=== PATIENT | male | born 1930 | race Caucasian/White ===

== ENCOUNTER 2016-12-26 12:50 | Emergency (ER) | payer MEDICARE, BC ==
[2016-12-26 13:22] VITALS: BP 134/79
[2016-12-26] MEDS ORDERED: Lidocaine 1% with EPINEPHrine 1:100,000 50 ML MDV INJECT STA (13:56)
--- NOTE | 2016-12-26 14:02 | EDM.PDOC ---
ED HPI GENERAL MEDICAL PROBLEM - General Chief Complaint: Laceration Stated Complaint: FALL/HURT HEAD Time Seen by Provider: 12/26/16 13:45 Source of Information: Reports: Patient History Limitations: Reports: No Limitations - History of Present Illness INITIAL COMMENTS - FREE TEXT/NARRATIVE: Patient working in yard today, fell and struck head on a tree branch. He developed a laceration 8cm in length, linear. He denies LOC. Onset: Today Location: Reports: Other (Laceration to scalp over parietal bone. ) Quality: Reports: Dull Severity: Mild Associated Symptoms: Reports: No Other Symptoms. Denies: Confusion, Headaches - Related Data Allergies Allergy/AdvReac Type Severity Reaction Status Date / Time No Known Allergies Allergy Verified 12/26/16 13:36 Home Meds: Home Meds Acetaminophen [Pain Reliever] 1,000 mg PO BID 01/17/14 [History] HCTZ/Triamterene [Maxzide 50-75 MG] 0.5 tab PO QAM 01/17/14 [History] Lisinopril 40 mg PO QAM 01/17/14 [History] Metoprolol Succinate 50 mg PO BID 01/17/14 [History] Montelukast [Singulair] 10 mg PO QPM 01/17/14 [History] Omeprazole [Prilosec] 20 mg PO QAM 01/17/14 [History] Aspirin [Ecotrin] 81 mg PO DAILY 12/14/15 [History] Digoxin [Lanoxin] 125 mcg PO QAM 12/14/15 [History] Isosorbide Mononitrate [Imdur] 30 mg PO QPM 12/14/15 [History] Nitroglycerin 0.4 mg SL ASDIRECTED 12/14/15 [History] Tiotropium [Spiriva HandiHaler] 2 puff IH QPM 12/14/15 [History] Warfarin Sodium [Warfarin Sodium] 3 - 4 mg PO MOWEFR 12/14/15 [History] Omeprazole Magnesium 1 tab PO DAILY 12/26/16 [History] Past Medical History HEENT History: Reports: Cataract, Hard of Hearing, Impaired Vision Cardiovascular History: Reports: Afib, Arrhythmia, CAD, High Cholesterol, Hypertension, [place], Stents Respiratory History: Reports: Asthma, COPD Gastrointestinal History: Reports: GERD Genitourinary History: Reports: Prostate Disorder Musculoskeletal History: Reports: Arthritis, Fracture Hematologic History: Reports: Blood Transfusion(s) Oncologic (Cancer) History: Reports: Prostate - Past Surgical History HEENT Surgical History: Reports: Cataract Surgery Cardiovascular Surgical History: Reports: Coronary Artery Stent GI Surgical History: Reports: Colonoscopy, EGD Male Surgical History: Reports: Other (See Below) Other Male Surgeries/Procedures: prostate removed Musculoskeletal Surgical History: Reports: Hip Replacement Social & Family History - Tobacco Use Smoking Status *Q: Never Smoker Years of Tobacco use: 30 Used Tobacco, but Quit: Yes Month Tobacco Last Used: jul Second Hand Smoke Exposure: No - Alcohol Use Days Per Week of Alcohol Use: 4 Number of Drinks Per Day: 1 Total Drinks Per Week: 4 - Recreational Drug Use Recreational Drug Use: No ED ROS GENERAL - Review of Systems Review Of Systems: See Below Constitutional: Reports: No Symptoms HEENT: Reports: Other (Laceration to scalp, no complaints of pain, change in dentition, no change in vision. ) Respiratory: Denies: Shortness of Breath, Wheezing, Cough Cardiovascular: Denies: Chest Pain, Dyspnea on Exertion, Lightheadedness, Palpitations, Syncope Endocrine: Reports: No Symptoms GI/Abdominal: Reports: No Symptoms Musculoskeletal: Denies: Neck Pain, Shoulder Pain, Back Pain, Muscle Pain, Muscle Stiffness Skin: Reports: Wound, Other (Laceration to scalp, bleeding controlled at this time. ) Neurological: Reports: Other (Laceration to scalp, bleeding controlled at this time. ). Denies: Confusion, Dizziness, Headache, Trouble Speaking, Difficulty Walking, Weakness Psychiatric: Reports: No Symptoms Hematologic/Lymphatic: Reports: Other (Patient takes warfarin) Immunologic: Reports: No Symptoms ED EXAM, SKIN/RASH Exam: See Below Exam Limited By: No Limitations General Appearance: Alert, WD/WN, No Apparent Distress Eye Exam: Bilateral Eye: EOMI (Intact), Normal Inspection, PERRL Ears: Normal External Exam, Normal Canal, Hearing Grossly Normal, Normal TMs Nose: Normal Inspection, Normal Mucosa, No Blood Throat/Mouth: Normal Inspection, Normal Lips, Normal Teeth, Normal Gums, Normal Oropharynx, Normal Voice, No Airway Compromise Head: Atraumatic, Normocephalic Neck: Normal Inspection, Supple, Non-Tender, Full Range of Motion Respiratory/Chest: No Respiratory Distress, Lungs Clear, Normal Breath Sounds, No Accessory Muscle Use, Chest Non-Tender Cardiovascular: Normal Peripheral Pulses, Regular Rate, Rhythm, No Edema, No Gallop, No Murmur, No Rub Peripheral Pulses: 2+: Radial (L), Radial (R), Dorsalis Pedis (L), Dorsalis Pedis (R) GI/Abdominal: Normal Bowel Sounds, Soft, Non-Tender, No Organomegaly, No Distention Back Exam: Normal Inspection, Full Range of Motion. No: CVA Tenderness (R), CVA Tenderness (L) Extremities: Normal Inspection, Normal Range of Motion, Non-Tender, No Pedal Edema, Normal Capillary Refill Neurological: Alert, Oriented, CN II-XII Intact, Normal Cognition, Normal Gait, No Motor/Sensory Deficits Psychiatric: Normal Affect, Normal Mood Skin: Warm, Dry, Normal Color, No Rash, Other (Laceration to scalp over parietal bone, 7cm in length, linear. ) Lymphatic: No Adenopathy ED SKIN PROCEDURES - Laceration/Wound Repair Middle Occipital Head Lac/Wound length In cm: 7 Appearance: Linear Distal NVT: Neuro & Vascular Intact Anesthetic Type: Local Local Anesthesia - Lidocaine (Xylocaine): 1% With EPI Local Anesthetic Volume: 4cc Skin Prep: Chlorhexidine (Hibiciens), Saline Saline Irrigation (cc's): 30 Exploration/Debridement/Repair: No Foreign Material Found Closed with: Parris Course - Vital Signs Last Recorded V/S: Last Vital Signs Temp 37.2 C 12/26/16 13:35 Pulse 62 12/26/16 13:35 Resp 16 12/26/16 13:35 BP 134/79 12/26/16 13:35 Pulse Ox 96 12/26/16 13:35 - Orders/Labs/Meds Orders: Active Orders 24 hr Category Date Time Status Vaccines to be Administered [RC] PER UNIT ROUTINE Care 12/26/16 14:47 Active Meds: Medications Discontinued Medications Generic Name Dose Route Start Last Admin Trade Name Ryan PRN Reason Stop Dose Admin Bacitracin 1 dose 12/26/16 14:36 12/26/16 14:39 Bacitracin Oint 1 Gm TOP 12/26/16 14:37 1 dose ONETIME ONE Administration Diphtheria/Tetanus/Acell Pertussis 0.5 ml 12/26/16 14:46 12/26/16 14:52 Adacel IM 12/26/16 14:47 0.5 ml .ONCE ONE Administration Lidocaine/Epinephrine 20 ml 12/26/16 13:56 12/26/16 14:37 Xylocaine 1% With Epinephrine 1:100,000 INJECT 12/26/16 13:57 20 ml NOW STA Administration - Radiology Interpretation Free Text/Narrative:: Will complete head CT due to warfarin use and head injury. - Re-Assessments/Exams Free Text/Narrative Re-Assessment/Exam: 12/26/16 14:38 Laceration to scalp closed with parris, patient tolerated well. Departure - Departure Time of Disposition: 14:39 Disposition: DC/Tfer to SNF 03 Condition: Good Clinical Impression: Laceration of scalp, Head injury without concussion or intracranial hemorrhage - Discharge Information Instructions: Head Injury, Adult, Laceration Care, Adult, [id number], Stitches, [place], or Adhesive Wound Closure, [id number] Referrals: Harry Hussein Sr, MD [Primary Care Provider] - Forms: ED Department Discharge Additional Instructions: Watch for signs of worsening head injury as we discussed. Keep pressure dressing on for 2 hours to help prevent a hematoma developing. You may use acetaminophen for discomfort if needed. Return to the ER or clinic for removal of the parris in 10 days. You may shower in 24 hours. Use bacitracin antibiotic ointment to the laceration twice per day. Keep the area clean and dry. Return at any time for worsening or issues. - Problem List Review Problem List Initiated/Reviewed/Updated: Yes - My Orders Last 24 Hours: My Active Orders 12/26/16 14:47 Vaccines to be Administered [RC] PER UNIT ROUTINE - Assessment/Plan Last 24 Hours: My Active Orders 12/26/16 14:47 Vaccines to be Administered [RC] PER UNIT ROUTINE Assessment:: Acute renal failure secondary to dehydration, vomiting and diarrhea for 3 to 4 days. Plan: Patient transferred to [facility] via ALS ambulance.
--- NOTE | 2016-12-26 14:27 | CT ---
Head wo Cont INDICATION: Head injury. Total DLP 845 COMPARISON: None FINDINGS: No acute intracranial hemorrhage, mass, or edema. Benign right frontal bone hemangioma. Mi ld generalized cerebral and cerebellar volume loss. Mild chronic white matter changes. Fluid and muc osal thickening in the visualized right maxillary and ethmoid sinuses. Exam otherwise unremarkable. IMPRESSION: No acute intracranial abnormality. Paranasal sinus disease.
[2016-12-26] MEDS ORDERED: Bacitracin Oint 1 GM U/D Packet TOP ONE (14:36)
[2016-12-26] MEDS ORDERED: Diphtheria,Pertussis(Acell),Tetanus Vaccine 0.5 ML SDV IM ONE (14:46)
== END 2016-12-26 15:17 | disposition home or self-care (01) ==
LOC: JP.ED 12:50
DX: S01.01XA Laceration without foreign body of scalp, initial encounter (principal); S09.90XA Unspecified injury of head, initial encounter; K21.9 Gastro-esophageal reflux disease without esophagitis; J45.909 Unspecified asthma, uncomplicated; J44.9 Chronic obstructive pulmonary disease, unspecified; I25.10 Atherosclerotic heart disease of native coronary artery without angina pectoris; E78.00 Pure hypercholesterolemia, unspecified; I10 Essential (primary) hypertension; I25.2 Old myocardial infarction; Z95.4 Presence of other heart-valve replacement; Z90.49 Acquired absence of other specified parts of digestive tract; Z96.649 Presence of unspecified artificial hip joint; Z79.899 Other long term (current) drug therapy; Z79.01 Long term (current) use of anticoagulants; Z79.82 Long term (current) use of aspirin; W01.198A Fall on same level from slipping, tripping and stumbling with subsequent striking against other object, initial encounter; Y92.096 Garden or yard of other non-institutional residence as the place of occurrence of the external cause; Y99.0 Civilian activity done for income or pay
CPT/HCPCS: 12002; 70450; 70450-26; 90471; 90715; 99284-25

== ENCOUNTER 2019-07-06 16:32 | Inpatient (IN) | payer MEDICARE, BC ==
--- NOTE | 2019-07-06 17:38 | EDM.PDOC ---
ED HPI GENERAL MEDICAL PROBLEM - General Chief Complaint: Gastrointestinal Problem Stated Complaint: ACID REFLUX SYMPTOMS Time Seen by Provider: 07/06/19 17:36 Source of Information: Reports: Patient History Limitations: Reports: No Limitations - History of Present Illness INITIAL COMMENTS - FREE TEXT/NARRATIVE: pt is having episodes after eating where he does not feel like the foot is going down. He becomes very uncomfortable and he gets some relief it he goes and vomits. He has been on prilosec and was taken off of that the end of last summer. Onset: Gradual Duration: Day(s): Location: Reports: Abdomen Associated Symptoms: Reports: Nausea/Vomiting, Other (pain in the abdoman. ) - Related Data Allergies Allergy/AdvReac Type Severity Reaction Status Date / Time No Known Allergies Allergy Verified 07/06/19 16:56 Home Meds: Home Meds Acetaminophen [Pain Reliever] 1,000 mg PO BID 01/17/14 [History] HCTZ/Triamterene [Maxzide 50-75 MG] 0.5 tab PO QAM 01/17/14 [History] Lisinopril 40 mg PO QAM 01/17/14 [History] Metoprolol Succinate 50 mg PO BID 01/17/14 [History] Montelukast [Singulair] 10 mg PO QPM 01/17/14 [History] Aspirin [Ecotrin EC] 81 mg PO DAILY 12/14/15 [History] Nitroglycerin 0.4 mg SL ASDIRECTED 12/14/15 [History] Tiotropium [Spiriva HandiHaler] 2 puff IH QPM 12/14/15 [History] Warfarin Sodium 5 mg PO DAILY 12/14/15 [History] Lovastatin 10 mg PO BEDTIME 07/06/19 [History] Past Medical History HEENT History: Reports: Cataract, Hard of Hearing, Impaired Vision Cardiovascular History: Reports: Afib, Arrhythmia, CAD, High Cholesterol, Hypertension, [place], Stents Respiratory History: Reports: Asthma, COPD Gastrointestinal History: Reports: GERD Genitourinary History: Reports: Prostate Disorder Musculoskeletal History: Reports: Arthritis, Fracture Hematologic History: Reports: Blood Transfusion(s) Oncologic (Cancer) History: Reports: Prostate - Infectious Disease History Infectious Disease History: Reports: Chicken Pox, Measles, Mumps - Past Surgical History HEENT Surgical History: Reports: Cataract Surgery Cardiovascular Surgical History: Reports: Coronary Artery Stent GI Surgical History: Reports: Colonoscopy, EGD Male Surgical History: Reports: Other (See Below) Other Male Surgeries/Procedures: prostate removed Musculoskeletal Surgical History: Reports: Hip Replacement Dermatological Surgical History: Reports: Skin Biopsy Social & Family History - Caffeine Use Caffeine Use: Reports: Coffee - Recreational Drug Use Recreational Drug Use: No ED ROS GENERAL - Review of Systems Review Of Systems: See Below Constitutional: Reports: No Symptoms HEENT: Reports: No Symptoms Respiratory: Reports: No Symptoms Cardiovascular: Reports: No Symptoms Endocrine: Reports: No Symptoms GI/Abdominal: Reports: Abdominal Pain, Vomiting, Other (pain after eating or drinking fluids. he gets nauseated and he vomits. He has severe paion in the espoagus after he swallows something. He is relieving this pain by vomiting. ) : Reports: No Symptoms Musculoskeletal: Reports: No Symptoms Skin: Reports: No Symptoms Neurological: Reports: No Symptoms ED EXAM, GI/ABD - Physical Exam Exam: See Below Text/Narrative:: pt arrived with severe pain in the lower esophagus area everytime he eats or drinks. This started mid morning and has been persistent. Exam Limited By: No Limitations General Appearance: Alert, Anxious, Moderate Distress Ears: Normal TMs Nose: Normal Inspection Throat/Mouth: Normal Inspection Head: Atraumatic Neck: Normal Inspection Respiratory/Chest: No Respiratory Distress Cardiovascular: Regular Rate, Rhythm GI/Abdominal Exam: Other ( no guarding or tenderness) (Male) Exam: Deferred Rectal (Males) Exam: Deferred Back Exam: Normal Inspection Extremities: Normal Inspection Neurological: Alert, Oriented, Normal Cognition Psychiatric: Anxious Course - Vital Signs Last Recorded V/S: Last Vital Signs Temp 36.4 C 07/06/19 16:55 Pulse 69 07/06/19 17:38 Resp 16 07/06/19 16:55 BP 139/65 07/06/19 17:38 Pulse Ox 99 07/06/19 17:38 - Orders/Labs/Meds Orders: Active Orders 24 hr Category Date Time Status Sodium Chloride 0.9% [Normal Saline] 1,000 ml Med 07/06/19 17:45 Active IV ASDIRECTED Medication Orders Sodium Chloride (Normal Saline) 1,000 mls @ 999 mls/hr IV ASDIRECTED ANNE Last Admin: 07/06/19 18:22 Dose: 999 mls/hr Labs: Laboratory Tests 07/06/19 07/06/19 07/06/19 Range/Units 17:50 17:50 17:50 WBC 7.8 (4.5-11.0) K/uL RBC 4.76 (4.30-5.90) M/uL Hgb 14.8 D (12.0-15.0) g/dL Hct 44.4 (40.0-54.0) % MCV 93 (80-98) fL MCH 31 (27-31) pg MCHC 33 (32-36) % Plt Count 224 (150-400) K/uL Neut % (Auto) 68 H (36-66) % Lymph % (Auto) 19 L (24-44) % [place] % (Auto) 11 H (2-6) % Eos % (Auto) 1 L (2-4) % Baso % (Auto) 0 (0-1) % PT 28.1 H (9.5-12.0) sec INR 2.76 H (0.80-1.20) Sodium 140 (140-148) mmol/L Potassium 3.5 L (3.6-5.2) mmol/L Chloride 102 (100-108) mmol/L Carbon Dioxide 28 (21-32) mmol/L Anion Gap 13.5 (5.0-14.0) mmol/L BUN 32 H (7-18) mg/dL Creatinine 1.3 (0.8-1.3) mg/dL Est Cr Clr Drug Dosing 45.02 mL/min Estimated GFR (MDRD) 52 L (>60) Glucose 95 (74-106) mg/dL Calcium 10.0 (8.5-10.1) mg/dL Total Bilirubin 0.7 (0.2-1.0) mg/dL AST 23 (15-37) U/L ALT 42 (12-78) U/L Alkaline Phosphatase 58 (46-116) U/L C-Reactive Protein (0.0-0.3) mg/dL Total Protein 7.5 (6.4-8.2) g/dL Albumin 4.1 (3.4-5.0) g/dL Globulin 3.4 (2.3-3.5) g/dL Albumin/Globulin Ratio 1.2 (1.2-2.2) Lipase (73-393) U/L 07/06/19 07/06/19 Range/Units 17:50 17:55 WBC (4.5-11.0) K/uL RBC (4.30-5.90) M/uL Hgb (12.0-15.0) g/dL Hct (40.0-54.0) % MCV (80-98) fL MCH (27-31) pg MCHC (32-36) % Plt Count (150-400) K/uL Neut % (Auto) (36-66) % Lymph % (Auto) (24-44) % [place] % (Auto) (2-6) % Eos % (Auto) (2-4) % Baso % (Auto) (0-1) % PT (9.5-12.0) sec INR (0.80-1.20) Sodium (140-148) mmol/L Potassium (3.6-5.2) mmol/L Chloride (100-108) mmol/L Carbon Dioxide (21-32) mmol/L Anion Gap (5.0-14.0) mmol/L BUN (7-18) mg/dL Creatinine (0.8-1.3) mg/dL Est Cr Clr Drug Dosing mL/min Estimated GFR (MDRD) (>60) Glucose (74-106) mg/dL Calcium (8.5-10.1) mg/dL Total Bilirubin (0.2-1.0) mg/dL AST (15-37) U/L ALT (12-78) U/L Alkaline Phosphatase (46-116) U/L C-Reactive Protein 0.05 (0.0-0.3) mg/dL Total Protein (6.4-8.2) g/dL Albumin (3.4-5.0) g/dL Globulin (2.3-3.5) g/dL Albumin/Globulin Ratio (1.2-2.2) Lipase 94 (73-393) U/L Meds: Medications Generic Name Dose Route Start Last Admin Trade Name Freq PRN Reason Stop Dose Admin Sodium Chloride 1,000 mls @ 999 mls/hr 07/06/19 17:45 07/06/19 18:22 Normal Saline IV 999 mls/hr ASDIRECTED ANNE Administration Discontinued Medications Generic Name Dose Route Start Last Admin Trade Name Freq PRN Reason Stop Dose Admin Pantoprazole Sodium 40 mg 07/06/19 17:39 07/06/19 18:26 Protonix Iv IVPUSH 07/06/19 17:40 40 mg ONETIME ONE Administration - Re-Assessments/Exams Free Text/Narrative Re-Assessment/Exam: 07/06/19 18:50 pt had lab work and he looks ok . He id try to drink some water and he ended up vomiting it back up. He is comfortable after he vomits. Dr Hussein was consulted and he will admit and scope in the am. Departure - Departure Time of Disposition: 18:51 Disposition: Admitted As Inpatient 66 Condition: Fair Clinical Impression: Esophageal spasm, Abdominal discomfort - Discharge Information Referrals: Harry Hussein Sr, MD [Primary Care Provider] - Forms: ED Department Discharge Care Plan Goals: admit to Dr Vitor marie Sepsis Event Note - Evaluation Sepsis Screening Result: No Definite Risk - Focused Exam Vital Signs: Vital Signs Temp Pulse Resp BP Pulse Ox 07/06/19 17:38 69 139/65 99 07/06/19 16:55 36.4 C 70 16 160/71 H 98 07/06/19 16:42 36.4 C 70 16 160/71 H 98 Date Exam was Performed: 07/06/19 Time Exam was Performed: 18:44 - My Orders Last 24 Hours: My Active Orders 07/06/19 17:45 Sodium Chloride 0.9% [Normal Saline] 1,000 ml IV ASDIRECTED - Assessment/Plan Last 24 Hours: My Active Orders 07/06/19 17:45 Sodium Chloride 0.9% [Normal Saline] 1,000 ml IV ASDIRECTED
[2019-07-06] MEDS ORDERED: Pantoprazole 40 MG Vial IVPUSH ONE (17:39)
[2019-07-06] MEDS: Sodium Chloride 0.9% 1,000 ML IV SCH ×2 (18:22→22:50)
[2019-07-06] MEDS ORDERED: Phytonadione 5 MG in Sodium Chloride 0.9% 50 ML IV ONE (21:58)
[2019-07-06] MEDS ORDERED: Nitroglycerin 0.4 MG Tab.SL SL SCH (22:00)
--- NOTE | 2019-07-06 22:08 | PCM.HP.2 ---
H&P History of Present Illness - General Date of Service: 07/06/19 Admit Problem/Dx: Admission Diagnosis/Problem Admission Diagnosis/Problem Esophageal dysmotility Source of Information: Patient, Family - History of Present Illness Initial Comments - Free Text/Narative: Jordy had the first episode of food sticking in the esophagus on Apr 18, 2019 and a second one last Thursday. Today has been unable to swallow after eating a piece of turkey at noon today. He is unable to swallow any food or liquid since. Onset of Symptoms: Reports: Today Duration of Symptoms: Reports: Hour(s): Severity: Moderate Worsens with: Reports: Eating - Related Data Allergies/Adverse Reactions: Allergies Allergy/AdvReac Type Severity Reaction Status Date / Time No Known Allergies Allergy Verified 07/06/19 16:56 Home Medications: Home Meds Acetaminophen [Pain Reliever] 1,000 mg PO BID 01/17/14 [History] HCTZ/Triamterene [Maxzide 50-75 MG] 0.5 tab PO QAM 01/17/14 [History] Lisinopril 40 mg PO QAM 01/17/14 [History] Metoprolol Succinate 50 mg PO BID 01/17/14 [History] Montelukast [Singulair] 10 mg PO QPM 01/17/14 [History] Aspirin [Ecotrin EC] 81 mg PO DAILY 12/14/15 [History] Nitroglycerin 0.4 mg SL ASDIRECTED 12/14/15 [History] Tiotropium [Spiriva HandiHaler] 2 puff IH QPM 12/14/15 [History] Warfarin Sodium 5 mg PO DAILY 12/14/15 [History] Lovastatin 10 mg PO BEDTIME 07/06/19 [History] Past Medical History HEENT History: Reports: Cataract, Hard of Hearing, Impaired Vision Cardiovascular History: Reports: Afib, Arrhythmia, CAD, High Cholesterol, Hypertension, PR, Stents Respiratory History: Reports: Asthma, COPD Gastrointestinal History: Reports: GERD Genitourinary History: Reports: Prostate Disorder Musculoskeletal History: Reports: Arthritis, Fracture Hematologic History: Reports: Blood Transfusion(s) Oncologic (Cancer) History: Reports: Prostate - Infectious Disease History Infectious Disease History: Reports: Chicken Pox, Measles, Mumps - Past Surgical History HEENT Surgical History: Reports: Cataract Surgery Cardiovascular Surgical History: Reports: Coronary Artery Stent GI Surgical History: Reports: Colonoscopy, EGD Male Surgical History: Reports: Other (See Below) Other Male Surgeries/Procedures: prostate removed Musculoskeletal Surgical History: Reports: Hip Replacement Dermatological Surgical History: Reports: Skin Biopsy Social & Family History - Caffeine Use Caffeine Use: Reports: Coffee - Recreational Drug Use Recreational Drug Use: No H&P Review of Systems - Review of Systems: Review Of Systems: See Below General: Reports: No Symptoms HEENT: Reports: No Symptoms Pulmonary: Reports: No Symptoms Cardiovascular: Reports: No Symptoms Gastrointestinal: Reports: Difficulty Swallowing Genitourinary: Reports: No Symptoms Musculoskeletal: Reports: No Symptoms Skin: Reports: No Symptoms Psychiatric: Reports: No Symptoms Neurological: Reports: No Symptoms Hematologic/Lymphatic: Reports: No Symptoms Immunologic: Reports: No Symptoms Exam - Exam Exam: See Below - Vital Signs Vital Signs: Last Vital Signs Temp 97.6 F 07/06/19 16:55 Pulse 62 07/06/19 19:37 Resp 17 07/06/19 19:37 BP 144/87 H 07/06/19 19:37 Pulse Ox 97 07/06/19 19:37 Weight: 175 lb 4.28 oz - Exam General: Alert, Oriented, 4 HEENT: PERRLA, Hearing Intact, Mucosa Moist & [place], Nares Patent, Normal Nasal Septum, Posterior Pharynx Clear, Conjunctiva Clear, EOMI, EACs Clear, TMs Clear Neck: Supple, Trachea Midline, 2 Lungs: Clear to Auscultation, Normal Respiratory Effort Cardiovascular: Regular Rate, Regular Rhythm GI/Abdominal Exam: Normal Bowel Sounds, Soft, Non-Tender, No Organomegaly, No Distention, No Abnormal Bruit, No Mass, Pelvis Stable Back Exam: Normal Inspection, Full Range of Motion, NT Extremities: Normal Inspection, Normal Range of Motion, Non-Tender, No Pedal Edema, Normal Capillary Refill Peripheral Pulses: 1+: Radial (L), Radial (R) Skin: Warm, Dry, Intact Neurological: Cranial Nerves Intact, Reflexes Equal Bilateral Neuro Extensive - Mental Status: Alert, Oriented x3, Normal Mood/Affect, Normal Cognition Neuro Extensive - Motor, Sensory, Reflexes: CN II-XII Intact, Normal Gait, Normal Reflexes DTR: 1+: Bicep (L), Bicep (R) Psychiatric: Alert, Normal Affect, Normal Mood - Patient Data Lab Results Last 24 hrs: Laboratory Results - last 24 hr 07/06/19 07/06/19 07/06/19 Range/Units 17:50 17:50 17:50 WBC 7.8 (4.5-11.0) K/uL RBC 4.76 (4.30-5.90) M/uL Hgb 14.8 D (12.0-15.0) g/dL Hct 44.4 (40.0-54.0) % MCV 93 (80-98) fL MCH 31 (27-31) pg MCHC 33 (32-36) % Plt Count 224 (150-400) K/uL Neut % (Auto) 68 H (36-66) % Lymph % (Auto) 19 L (24-44) % [place] % (Auto) 11 H (2-6) % Eos % (Auto) 1 L (2-4) % Baso % (Auto) 0 (0-1) % PT 28.1 H (9.5-12.0) sec INR 2.76 H (0.80-1.20) Sodium 140 (140-148) mmol/L Potassium 3.5 L (3.6-5.2) mmol/L Chloride 102 (100-108) mmol/L Carbon Dioxide 28 (21-32) mmol/L Anion Gap 13.5 (5.0-14.0) mmol/L BUN 32 H (7-18) mg/dL Creatinine 1.3 (0.8-1.3) mg/dL Est Cr Clr Drug Dosing 45.02 mL/min Estimated GFR (MDRD) 52 L (>60) Glucose 95 (74-106) mg/dL Calcium 10.0 (8.5-10.1) mg/dL Total Bilirubin 0.7 (0.2-1.0) mg/dL AST 23 (15-37) U/L ALT 42 (12-78) U/L Alkaline Phosphatase 58 (46-116) U/L C-Reactive Protein (0.0-0.3) mg/dL Total Protein 7.5 (6.4-8.2) g/dL Albumin 4.1 (3.4-5.0) g/dL Globulin 3.4 (2.3-3.5) g/dL Albumin/Globulin Ratio 1.2 (1.2-2.2) Lipase (73-393) U/L 07/06/19 07/06/19 Range/Units 17:50 17:55 WBC (4.5-11.0) K/uL RBC (4.30-5.90) M/uL Hgb (12.0-15.0) g/dL Hct (40.0-54.0) % MCV (80-98) fL MCH (27-31) pg MCHC (32-36) % Plt Count (150-400) K/uL Neut % (Auto) (36-66) % Lymph % (Auto) (24-44) % [place] % (Auto) (2-6) % Eos % (Auto) (2-4) % Baso % (Auto) (0-1) % PT (9.5-12.0) sec INR (0.80-1.20) Sodium (140-148) mmol/L Potassium (3.6-5.2) mmol/L Chloride (100-108) mmol/L Carbon Dioxide (21-32) mmol/L Anion Gap (5.0-14.0) mmol/L BUN (7-18) mg/dL Creatinine (0.8-1.3) mg/dL Est Cr Clr Drug Dosing mL/min Estimated GFR (MDRD) (>60) Glucose (74-106) mg/dL Calcium (8.5-10.1) mg/dL Total Bilirubin (0.2-1.0) mg/dL AST (15-37) U/L ALT (12-78) U/L Alkaline Phosphatase (46-116) U/L C-Reactive Protein 0.05 (0.0-0.3) mg/dL Total Protein (6.4-8.2) g/dL Albumin (3.4-5.0) g/dL Globulin (2.3-3.5) g/dL Albumin/Globulin Ratio (1.2-2.2) Lipase 94 (73-393) U/L Result Diagrams: 07/06/19 17:50 07/06/19 17:50 Sepsis Event Note - Evaluation Sepsis Screening Result: No Definite Risk - Focused Exam Vital Signs: Vital Signs Temp Pulse Resp BP Pulse Ox 07/06/19 19:37 62 17 144/87 H 97 07/06/19 17:38 69 139/65 99 07/06/19 16:55 97.6 F 70 16 160/71 H 98 07/06/19 16:42 97.6 F 70 16 160/71 H 98 Date Exam was Performed: 07/06/19 Time Exam was Performed: 22:21 Problem List Initiated/Reviewed/Updated: Yes Orders Last 24hrs: Active Orders 24 hr Category Date Time Status Patient Status [ADT] Routine ADT 07/06/19 21:50 Ordered Ambulate [RC] QID Care 07/06/19 21:50 Ordered Bedrest Bathroom Privileges [RC] ASDIRECTED Care 07/06/19 21:50 Ordered Height and Weight [RC] DAILY Care 07/06/19 21:50 Ordered Intake and Output [RC] QSHIFT Care 07/06/19 21:55 Ordered May Shower [RC] ASDIRECTED Care 07/06/19 21:50 Ordered Oxygen Therapy [RC] PRN Care 07/06/19 21:50 Ordered VTE/DVT Education [RC] Per Unit Routine Care 07/06/19 21:50 Ordered Vital Signs [RC] Q4H Care 07/06/19 21:50 Ordered Nitroglycerin [Nitrostat] Med 07/06/19 22:00 Ordered 0.4 mg SL ASDIRECTED Phytonadione [AquaMephyton] 5 mg Med 07/06/19 21:58 Ordered Sodium Chloride 0.9% [Normal Saline] 50 ml IV NOW Sodium Chloride 0.9% [Normal Saline] 1,000 ml Med 07/06/19 17:45 Active IV ASDIRECTED Tiotropium [Spiriva HandiHaler] Med 07/07/19 17:00 Ordered 2 puff IH QPM Resuscitation Status Routine Resus Stat 07/06/19 21:50 Ordered Medication Orders Sodium Chloride (Normal Saline) 1,000 mls @ 100 mls/hr IV ASDIRECTED ANNE Last Admin: 07/06/19 18:22 Dose: 999 mls/hr Assessment/Plan Comment:: Assessment/Plan: #1. Esophageal stenosis: Will do an EGD in the morning and dilate the esophagus. #2. HTN: Stable #3. Atrial Fe. He is on Coumadin. Will give Vit K IV since he can't swallow and check a INR in the morning. INR is 2.7 this evening. #4. Hypokalemia. Will add K to the IV. #5. HLD #6. Hx. Ca of the Prostate. - Mortality Measure Prognosis:: Good
[2019-07-06] MEDS ORDERED: Potassium Chloride 20 MEQ in Premix Bag 2 BAG IV ONE (22:43)
[2019-07-06] MEDS ORDERED: Metoprolol Tartrate 5 MG/5 ML SDV IVPUSH PRN (23:31)
[2019-07-07] MEDS: Potassium Chloride 20 MEQ in Premix Bag 1 BAG IV SCH ×2 (00:33→02:35)
[2019-07-07] MEDS ORDERED: Glycopyrrolate 15.6 MCG Cap.W.Dev Kit of 6 IH SCH ×2 (07:00→07:30)
[2019-07-07] MEDS ORDERED: fentaNYL 100 MCG/2 ML SDV ONE (07:30)
[2019-07-07] MEDS ORDERED: Propofol 200 MG/20 ML SDV ONE (07:30)
[2019-07-07] MEDS ORDERED: Lactated Ringers 1,000 ML ONE (08:25)
[2019-07-07] MEDS ORDERED: Pneumococcal Polyvalent-23 Vaccine 0.5 ML SDV IM ONE (09:00)
--- NOTE | 2019-07-07 09:24 | PCM.PN ---
- General Info Date of Service: 07/07/19 Functional Status: Reports: Pain Controlled - Review of Systems General: Reports: No Symptoms HEENT: Reports: No Symptoms Pulmonary: Reports: No Symptoms Cardiovascular: Reports: No Symptoms Gastrointestinal: Reports: No Symptoms Genitourinary: Reports: No Symptoms Musculoskeletal: Reports: No Symptoms Skin: Reports: No Symptoms Neurological: Reports: No Symptoms Psychiatric: Reports: No Symptoms - Patient Data Vitals - Most Recent: Last Vital Signs Temp 97.7 F 07/07/19 09:05 Pulse 68 07/07/19 09:05 Resp 14 07/07/19 09:05 BP 143/68 H 07/07/19 09:05 Pulse Ox 98 07/07/19 09:05 Weight - Most Recent: 175 lb 3.2 oz I&O - Last 24 Hours: Intake & Output 07/06/19 07/07/19 07/07/19 22:59 06:59 14:59 Intake Total 795 75 Output Total 800 Balance -5 75 Lab Results Last 24 Hours: Laboratory Results - last 24 hr 07/06/19 07/06/19 07/06/19 Range/Units 17:50 17:50 17:50 WBC 7.8 (4.5-11.0) K/uL RBC 4.76 (4.30-5.90) M/uL Hgb 14.8 D (12.0-15.0) g/dL Hct 44.4 (40.0-54.0) % MCV 93 (80-98) fL MCH 31 (27-31) pg MCHC 33 (32-36) % Plt Count 224 (150-400) K/uL Neut % (Auto) 68 H (36-66) % Lymph % (Auto) 19 L (24-44) % [place] % (Auto) 11 H (2-6) % Eos % (Auto) 1 L (2-4) % Baso % (Auto) 0 (0-1) % PT 28.1 H (9.5-12.0) sec INR 2.76 H (0.80-1.20) Sodium 140 (140-148) mmol/L Potassium 3.5 L (3.6-5.2) mmol/L Chloride 102 (100-108) mmol/L Carbon Dioxide 28 (21-32) mmol/L Anion Gap 13.5 (5.0-14.0) mmol/L BUN 32 H (7-18) mg/dL Creatinine 1.3 (0.8-1.3) mg/dL Est Cr Clr Drug Dosing 45.02 mL/min Estimated GFR (MDRD) 52 L (>60) Glucose 95 (74-106) mg/dL Calcium 10.0 (8.5-10.1) mg/dL Total Bilirubin 0.7 (0.2-1.0) mg/dL AST 23 (15-37) U/L ALT 42 (12-78) U/L Alkaline Phosphatase 58 (46-116) U/L C-Reactive Protein (0.0-0.3) mg/dL Total Protein 7.5 (6.4-8.2) g/dL Albumin 4.1 (3.4-5.0) g/dL Globulin 3.4 (2.3-3.5) g/dL Albumin/Globulin Ratio 1.2 (1.2-2.2) Lipase (73-393) U/L 07/06/19 07/06/19 Range/Units 17:50 17:55 WBC (4.5-11.0) K/uL RBC (4.30-5.90) M/uL Hgb (12.0-15.0) g/dL Hct (40.0-54.0) % MCV (80-98) fL MCH (27-31) pg MCHC (32-36) % Plt Count (150-400) K/uL Neut % (Auto) (36-66) % Lymph % (Auto) (24-44) % [place] % (Auto) (2-6) % Eos % (Auto) (2-4) % Baso % (Auto) (0-1) % PT (9.5-12.0) sec INR (0.80-1.20) Sodium (140-148) mmol/L Potassium (3.6-5.2) mmol/L Chloride (100-108) mmol/L Carbon Dioxide (21-32) mmol/L Anion Gap (5.0-14.0) mmol/L BUN (7-18) mg/dL Creatinine (0.8-1.3) mg/dL Est Cr Clr Drug Dosing mL/min Estimated GFR (MDRD) (>60) Glucose (74-106) mg/dL Calcium (8.5-10.1) mg/dL Total Bilirubin (0.2-1.0) mg/dL AST (15-37) U/L ALT (12-78) U/L Alkaline Phosphatase (46-116) U/L C-Reactive Protein 0.05 (0.0-0.3) mg/dL Total Protein (6.4-8.2) g/dL Albumin (3.4-5.0) g/dL Globulin (2.3-3.5) g/dL Albumin/Globulin Ratio (1.2-2.2) Lipase 94 (73-393) U/L Med Orders - Current: Current Medications Glycopyrrolate (Seebri Neohaler) 15.6 mcg IH BIDRT [facility] Sodium Chloride (Normal Saline) 1,000 mls @ 100 mls/hr IV ASDIRECTED [facility] Last Admin: 07/06/19 22:50 Dose: 100 mls/hr Metoprolol Tartrate (Lopressor) 5 mg IVPUSH Q4H PRN PRN Reason: Hypertension Last Admin: 07/07/19 03:06 Dose: 5 mg Discontinued Medications Fentanyl (Sublimaze) Confirm Administered Dose 100 mcg .ROUTE .STK-MED ONE Stop: 07/07/19 07:31 Phytonadione 5 mg/ Sodium (Chloride) 50.5 mls @ 100 mls/hr IV NOW ONE Stop: 07/06/19 22:28 Last Admin: 07/06/19 23:30 Dose: 100 mls/hr Potassium Chloride 20 meq/ (Premix) 0 mls @ 50 mls/hr IV ONETIME ONE Stop: 07/06/19 22:44 Last Admin: 07/06/19 23:14 Dose: Not Given Potassium Chloride 20 meq/ (Premix) 100 mls @ 50 mls/hr IV Q2H ANNE Stop: 07/07/19 03:44 Last Admin: 07/07/19 02:35 Dose: 50 mls/hr Lactated Ringer's (Ringers, Lactated) Confirm Administered Dose 1,000 mls @ as directed .ROUTE .STK-MED ONE Stop: 07/07/19 08:26 Nitroglycerin (Nitrostat) 0.4 mg SL ASDIRECTED [facility] Stop: 07/06/19 23:59 Pantoprazole Sodium (Protonix Iv) 40 mg IVPUSH ONETIME ONE Stop: 07/06/19 17:40 Last Admin: 07/06/19 18:26 Dose: 40 mg Pneumococcal Polyvalent Vaccine (Pneumovax 23) 0.5 ml IM .ONCE ONE Stop: 07/07/19 09:01 Propofol (Diprivan 20 Ml) Confirm Administered Dose 200 mg .ROUTE .STK-MED ONE Stop: 07/07/19 07:31 - Exam General: Alert, Oriented HEENT: Pupils Equal, Pupils Reactive, EOMI, Mucous Membr. Moist/[place] Neck: Supple Lungs: Clear to Auscultation, Normal Respiratory Effort Cardiovascular: Regular Rate, Regular Rhythm GI/Abdominal Exam: Normal Bowel Sounds, Soft, Non-Tender, No Organomegaly, No Distention, No Abnormal Bruit, No Mass, Pelvis Stable Extremities: Normal Inspection, Normal Range of Motion, Non-Tender, No Pedal Edema, Normal Capillary Refill Peripheral Pulses: 1+: Radial (L), Radial (R) Skin: Warm, Dry, Intact Psy/Mental Status: Alert, Normal Affect, Normal Mood Sepsis Event Note - Evaluation Sepsis Screening Result: No Definite Risk - Focused Exam Vital Signs: Vital Signs Temp Temp Pulse Pulse Resp BP BP 07/07/19 09:05 97.7 F 68 14 143/68 H 07/07/19 08:50 98.2 F 69 12 127/64 07/07/19 08:45 72 12 134/64 07/07/19 08:40 71 16 118/64 07/07/19 08:35 68 16 133/63 07/07/19 08:30 97.5 F 67 16 136/46 L 07/07/19 06:51 97.9 F 67 18 180/82 H 07/07/19 03:37 63 163/74 H 07/07/19 03:33 63 165/75 H 07/07/19 03:28 70 175/67 H 07/07/19 03:17 72 184/89 H 07/07/19 03:13 77 202/80 H 07/07/19 03:06 90 199/112 H 07/07/19 02:35 97.5 F 71 16 171/69 H 07/06/19 23:45 64 16 160/60 H 07/06/19 23:40 66 16 153/69 H 07/06/19 23:35 66 16 164/69 H 07/06/19 23:14 173/76 H 07/06/19 22:46 98.1 F 69 16 132/115 H Pulse Ox 07/07/19 09:05 98 07/07/19 08:50 98 07/07/19 08:45 95 07/07/19 08:40 98 07/07/19 08:35 100 07/07/19 08:30 100 07/07/19 06:51 98 07/07/19 03:37 07/07/19 03:33 07/07/19 03:28 07/07/19 03:17 07/07/19 03:13 07/07/19 03:06 07/07/19 02:35 98 07/06/19 23:45 98 07/06/19 23:40 99 07/06/19 23:35 96 07/06/19 23:14 07/06/19 22:46 98 Date Exam was Performed: 07/07/19 Time Exam was Performed: 09:20 - Problem List Review Problem List Initiated/Reviewed/Updated: Yes - My Orders Last 24 Hours: My Active Orders 07/06/19 21:50 Patient Status [ADT] Routine Ambulate [RC] QID Bedrest Bathroom Privileges [RC] ASDIRECTED Height and Weight [RC] DAILY May Shower [RC] ASDIRECTED Oxygen Therapy [RC] PRN VTE/DVT Education [RC] Per Unit Routine Vital Signs [RC] Q4H Resuscitation Status Routine 07/06/19 21:55 Intake and Output [RC] QSHIFT 07/06/19 22:43 Verify Patient Consent Obtain [RC] ASDIRECTED 07/06/19 23:31 Metoprolol Tartrate [Lopressor] 5 mg IVPUSH Q4H PRN 07/07/19 07:30 Glycopyrrolate [Seebri Neohaler] 15.6 mcg IH BIDRT - Plan Plan:: Assessment/Plan: #1. Foreign body ([place]) in esophagus. Resolved. One piece removed one fragmented and advanced into the stomach. #2. HTN: Stable. Will go back on his medicine. #3. Atrial Fe. He is on Coumadin and will continue same dosage as before. #4. Hypokalemia. stable #5. HLD #6. Hx. Ca of the Prostate.
--- NOTE | 2019-07-07 09:30 | PCM.DCSUM1 ---
Discharge Summary - Hospital Course Brief History: Admitted after unable to swallow after eating turkey at noon on the June. Was unable to swallow any liquid or solids. Diagnosis: Stroke: No - Discharge Data Discharge Date: 07/07/19 Discharge Disposition: Refer to Observation Condition: Good - Referral to Home Health Primary Care Physician: Harry Hussein Sr, MD - Patient Summary/Data Operative Procedure(s) Performed: EGD with removal of foreign body (tur[place]) Hospital Course: EGD completed with removal of the Foreign body ([place]) in esophagus. One piece removed and one fragmented and advanced into the stomach. Able to swallow post procedure. - Patient Instructions Diet: Heart Healthy Diet Diet, Other: Advised to chew food especially meat products or use a obstetrics/gynecology nurse. Activity: As Tolerated - Discharge Plan *PRESCRIPTION DRUG MONITORING PROGRAM REVIEWED*: No *COPY OF PRESCRIPTION DRUG MONITORING REPORT IN PATIENT REN: No Home Medications: Home Meds Acetaminophen [Pain Reliever] 1,000 mg PO BID 01/17/14 [History] HCTZ/Triamterene [Maxzide 50-75 MG] 0.5 tab PO QAM 01/17/14 [History] Lisinopril 40 mg PO QAM 01/17/14 [History] Metoprolol Succinate 50 mg PO BID 01/17/14 [History] Montelukast [Singulair] 10 mg PO QPM 01/17/14 [History] Aspirin [Ecotrin EC] 81 mg PO DAILY 12/14/15 [History] Nitroglycerin 0.4 mg SL ASDIRECTED 12/14/15 [History] Tiotropium [Spiriva HandiHaler] 2 puff IH QPM 12/14/15 [History] Warfarin Sodium 5 mg PO DAILY 12/14/15 [History] Lovastatin 10 mg PO BEDTIME 07/06/19 [History] Forms: ED Department Discharge Referrals: Harry Hussein Sr, MD [Primary Care Provider] - - Discharge Summary/Plan Comment DC Time >30 min.: Yes Discharge Summary/Plan Comment: Assessment/Plan: #1. Foreign body ([place]) in esophagus. Resolved. One piece removed one fragmented and advanced into the stomach. #2. HTN: Stable. Will go back on his medicine. #3. Atrial Fe. He is on Coumadin and will continue same dosage as before. #4. Hypokalemia. stable #5. HLD: continue with medicine #6. Hx. Ca of the Prostate. Stable - General Info Date of Service: 07/07/19 Functional Status: Reports: Pain Controlled - Review of Systems General: Reports: No Symptoms HEENT: Reports: No Symptoms Pulmonary: Reports: No Symptoms Cardiovascular: Reports: No Symptoms Gastrointestinal: Reports: No Symptoms Genitourinary: Reports: No Symptoms Musculoskeletal: Reports: No Symptoms Skin: Reports: No Symptoms Neurological: Reports: No Symptoms Psychiatric: Reports: No Symptoms - Patient Data Vitals - Most Recent: Last Vital Signs Temp 97.7 F 07/07/19 09:05 Pulse 68 07/07/19 09:05 Resp 14 07/07/19 09:05 BP 143/68 H 07/07/19 09:05 Pulse Ox 98 07/07/19 09:05 Weight - Most Recent: 175 lb 3.2 oz I&O - Last 24 hours: Intake & Output 07/06/19 07/07/19 07/07/19 22:59 06:59 14:59 Intake Total 795 125 Output Total 800 Balance -5 125 Lab Results - Last 24 hrs: Laboratory Results - last 24 hr 07/06/19 07/06/19 07/06/19 Range/Units 17:50 17:50 17:50 WBC 7.8 (4.5-11.0) K/uL RBC 4.76 (4.30-5.90) M/uL Hgb 14.8 D (12.0-15.0) g/dL Hct 44.4 (40.0-54.0) % MCV 93 (80-98) fL MCH 31 (27-31) pg MCHC 33 (32-36) % Plt Count 224 (150-400) K/uL Neut % (Auto) 68 H (36-66) % Lymph % (Auto) 19 L (24-44) % [place] % (Auto) 11 H (2-6) % Eos % (Auto) 1 L (2-4) % Baso % (Auto) 0 (0-1) % PT 28.1 H (9.5-12.0) sec INR 2.76 H (0.80-1.20) Sodium 140 (140-148) mmol/L Potassium 3.5 L (3.6-5.2) mmol/L Chloride 102 (100-108) mmol/L Carbon Dioxide 28 (21-32) mmol/L Anion Gap 13.5 (5.0-14.0) mmol/L BUN 32 H (7-18) mg/dL Creatinine 1.3 (0.8-1.3) mg/dL Est Cr Clr Drug Dosing 45.02 mL/min Estimated GFR (MDRD) 52 L (>60) Glucose 95 (74-106) mg/dL Calcium 10.0 (8.5-10.1) mg/dL Total Bilirubin 0.7 (0.2-1.0) mg/dL AST 23 (15-37) U/L ALT 42 (12-78) U/L Alkaline Phosphatase 58 (46-116) U/L C-Reactive Protein (0.0-0.3) mg/dL Total Protein 7.5 (6.4-8.2) g/dL Albumin 4.1 (3.4-5.0) g/dL Globulin 3.4 (2.3-3.5) g/dL Albumin/Globulin Ratio 1.2 (1.2-2.2) Lipase (73-393) U/L 07/06/19 07/06/19 Range/Units 17:50 17:55 WBC (4.5-11.0) K/uL RBC (4.30-5.90) M/uL Hgb (12.0-15.0) g/dL Hct (40.0-54.0) % MCV (80-98) fL MCH (27-31) pg MCHC (32-36) % Plt Count (150-400) K/uL Neut % (Auto) (36-66) % Lymph % (Auto) (24-44) % [place] % (Auto) (2-6) % Eos % (Auto) (2-4) % Baso % (Auto) (0-1) % PT (9.5-12.0) sec INR (0.80-1.20) Sodium (140-148) mmol/L Potassium (3.6-5.2) mmol/L Chloride (100-108) mmol/L Carbon Dioxide (21-32) mmol/L Anion Gap (5.0-14.0) mmol/L BUN (7-18) mg/dL Creatinine (0.8-1.3) mg/dL Est Cr Clr Drug Dosing mL/min Estimated GFR (MDRD) (>60) Glucose (74-106) mg/dL Calcium (8.5-10.1) mg/dL Total Bilirubin (0.2-1.0) mg/dL AST (15-37) U/L ALT (12-78) U/L Alkaline Phosphatase (46-116) U/L C-Reactive Protein 0.05 (0.0-0.3) mg/dL Total Protein (6.4-8.2) g/dL Albumin (3.4-5.0) g/dL Globulin (2.3-3.5) g/dL Albumin/Globulin Ratio (1.2-2.2) Lipase 94 (73-393) U/L Med Orders - Current: Current Medications Glycopyrrolate (Seebri Neohaler) 15.6 mcg IH BIDRT [facility] Sodium Chloride (Normal Saline) 1,000 mls @ 100 mls/hr IV ASDIRECTED [facility] Last Admin: 07/06/19 22:50 Dose: 100 mls/hr Metoprolol Tartrate (Lopressor) 5 mg IVPUSH Q4H PRN PRN Reason: Hypertension Last Admin: 07/07/19 03:06 Dose: 5 mg Discontinued Medications Fentanyl (Sublimaze) Confirm Administered Dose 100 mcg .ROUTE .STK-MED ONE Stop: 07/07/19 07:31 Phytonadione 5 mg/ Sodium (Chloride) 50.5 mls @ 100 mls/hr IV NOW ONE Stop: 07/06/19 22:28 Last Admin: 07/06/19 23:30 Dose: 100 mls/hr Potassium Chloride 20 meq/ (Premix) 0 mls @ 50 mls/hr IV ONETIME ONE Stop: 07/06/19 22:44 Last Admin: 07/06/19 23:14 Dose: Not Given Potassium Chloride 20 meq/ (Premix) 100 mls @ 50 mls/hr IV Q2H ANNE Stop: 07/07/19 03:44 Last Admin: 07/07/19 02:35 Dose: 50 mls/hr Lactated Ringer's (Ringers, Lactated) Confirm Administered Dose 1,000 mls @ as directed .ROUTE .STK-MED ONE Stop: 07/07/19 08:26 Nitroglycerin (Nitrostat) 0.4 mg SL ASDIRECTED ANNE Stop: 07/06/19 23:59 Pantoprazole Sodium (Protonix Iv) 40 mg IVPUSH ONETIME ONE Stop: 07/06/19 17:40 Last Admin: 07/06/19 18:26 Dose: 40 mg Pneumococcal Polyvalent Vaccine (Pneumovax 23) 0.5 ml IM .ONCE ONE Stop: 07/07/19 09:01 Propofol (Diprivan 20 Ml) Confirm Administered Dose 200 mg .ROUTE .STK-MED ONE Stop: 07/07/19 07:31 - Exam General: Reports: Alert, Oriented HEENT: Reports: Pupils Equal, Pupils Reactive, EOMI, Mucous Membr. Moist/[place] Neck: Reports: Supple Lungs: Reports: Clear to Auscultation, Normal Respiratory Effort Cardiovascular: Reports: Regular Rate, Regular Rhythm GI/Abdominal Exam: Normal Bowel Sounds, Soft, Non-Tender, No Organomegaly, No Distention, No Abnormal Bruit, No Mass, Pelvis Stable Back Exam: Reports: Normal Inspection, Full Range of Motion Extremities: Normal Inspection, Normal Range of Motion, Non-Tender, No Pedal Edema, Normal Capillary Refill Skin: Reports: Warm, Dry, Intact Neurological: Reports: No New Focal Deficit Psy/Mental Status: Reports: Alert, Normal Affect, Normal Mood
[2019-07-07 09:43] VITALS: BP 158/73; PULSE 65
--- NOTE | 2019-07-07 15:32 | PROC ---
DATE OF PROCEDURE: 07/07/2019 SURGEON: Harry Hussein MD INDICATIONS: Behzad is an 88-year-old male who was eating yesterday at noon. He took some mashed potatoes first and then ate chicken and all of a sudden he could not swallow. He has had 2 episodes in the past that caused him to be unable to swallow and resolved each time. This afternoon, on , on Thursday, he was admitted Thursday night because he could not swallow anything including water. The risks and benefits were explained for esophagogastroduodenoscopy with possible dilatation and explained the risks of taking out foreign bodies from the esophagus. PROCEDURE IN DETAIL: The anesthesia was given by nurse road driver. During the procedure, we used 100 mcg of Fentanyl, 110 mg of propofol. The Olympus 180 scope was used, was placed into the pharynx and into the esophagus without difficulty and advanced under direct vision. Getting into the mid esophagus, noted debris, and we got down toward the GE junction and noted 2 pieces of turkey that were evident. We then grabbed 1 piece and removed it. Then the other piece we were able to fragment the pieces and then pushed it through into the stomach. The tube was then advanced through the pylorus and the pylorus was narrowed but able to get through into the first and second part of the duodenum. Upon retraction, the tube noted no duodenal erythema, no abnormality. The tube was brought back into the stomach. The greater and lesser curvature and fundus were unremarkable. The GE junction was then identified. There were still small chunks of material noted in the esophagus, and he had been placed in reverse Trendelenburg during the procedure. The remainder of the esophagus was unremarkable. There was no significant stenosis, but there was a large hiatal hernia noted. The tube was slowly retracted. The vocal cords moved symmetrically. No obvious pathology noted. The tube was removed. The patient tolerated the procedure well. Dysphagia, postop foreign body, turkey in the esophagus, 1 piece removed, the other was fragmented and pushed into the stomach. He will be sent home as soon as he can swallow and medically stable. Harry Hussein MD /[id number]
== END 2019-07-07 11:23 | disposition home or self-care (01) | DRG 395 ==
LOC: JP.ED 16:32 → JP.MS 21:50
PROVIDERS: ADMIT Internal Medicine; ATTEND Internal Medicine
PROC: 0DC58ZZ Extirpation of Matter from Esophagus, Via Natural or Artificial Opening Endoscopic (ICD-10-PCS; principal; 2019-07-07)
DX: K22.4 Dyskinesia of esophagus (principal); R10.9 Unspecified abdominal pain; H54.7 Unspecified visual loss; H91.90 Unspecified hearing loss, unspecified ear; T18.128A Food in esophagus causing other injury, initial encounter; I48.91 Unspecified atrial fibrillation; E87.6 Hypokalemia; E78.5 Hyperlipidemia, unspecified; I25.10 Atherosclerotic heart disease of native coronary artery without angina pectoris; E78.00 Pure hypercholesterolemia, unspecified; I10 Essential (primary) hypertension; J44.9 Chronic obstructive pulmonary disease, unspecified; K21.9 Gastro-esophageal reflux disease without esophagitis; Z96.649 Presence of unspecified artificial hip joint; Z85.46 Personal history of malignant neoplasm of prostate; Z79.82 Long term (current) use of aspirin; Z79.01 Long term (current) use of anticoagulants; Z79.899 Other long term (current) drug therapy; Z98.49 Cataract extraction status, unspecified eye; I25.2 Old myocardial infarction; Z95.5 Presence of coronary angioplasty implant and graft; X58.XXXA Exposure to other specified factors, initial encounter
CPT/HCPCS: 36415; 80053; 83690; 85025; 85610; 86140; C9113; J7030; J2704; J3010; J3430; J3480; J3490; J7050; J7120

== ENCOUNTER 2020-02-12 11:12 | Emergency (ER) | payer MEDICARE, BC ==
[2020-02-12 11:30] VITALS: BP 163/65; PULSE 56
--- NOTE | 2020-02-12 11:58 | EDM.PDOC ---
ED HPI GENERAL MEDICAL PROBLEM - General Chief Complaint: Cardiovascular Problem Stated Complaint: POST SURGERY Time Seen by Provider: 02/12/20 11:40 Source of Information: Reports: Patient, Family History Limitations: Reports: No Limitations - History of Present Illness INITIAL COMMENTS - FREE TEXT/NARRATIVE: 89-year-old male concerned about swelling and ecchymosis developing in the left groin after a vascular procedure done 3 days ago. He had a similar procedure on the right side 3 weeks ago and did not have this much bruising or swelling, but he is on warfarin and Eliquis after this procedure, he was only on warfarin after the last one. His noticed about a quarter size lump in the left groin yesterday, called the clinic and was told to watch it and if it grows to recheck today. It is larger today, it is not tender, red, warm but she wants it rechecked. Onset: Gradual Duration: Day(s): (Worsening over the past 48 hours) Location: Reports: Other (Left groin) Associated Symptoms: Reports: No Other Symptoms - Related Data Allergies Allergy/AdvReac Type Severity Reaction Status Date / Time No Known Allergies Allergy Verified 02/12/20 11:31 Home Meds: Home Meds Metoprolol Succinate 50 mg PO BID 01/17/14 [History] Montelukast [Singulair] 10 mg PO QPM 01/17/14 [History] Aspirin [Ecotrin EC] 81 mg PO DAILY 12/14/15 [History] Nitroglycerin 0.4 mg SL ASDIRECTED 12/14/15 [History] Tiotropium [Spiriva HandiHaler] 2 puff IH QPM 12/14/15 [History] Warfarin Sodium 5 mg PO DAILY 12/14/15 [History] Lovastatin 10 mg PO BEDTIME 07/06/19 [History] Cholecalciferol (Vitamin D3) [Vitamin D3] 1,000 unit PO DAILY 02/12/20 [History] Furosemide 20 mg PO DAILY 02/12/20 [History] Losartan [Cozaar] 50 mg PO DAILY 02/12/20 [History] Past Medical History HEENT History: Reports: Cataract, Hard of Hearing, Impaired Vision Cardiovascular History: Reports: Afib, Arrhythmia, CAD, High Cholesterol, Hypertension, [place], Stents Respiratory History: Reports: Asthma, COPD Gastrointestinal History: Reports: GERD Genitourinary History: Reports: Prostate Disorder Musculoskeletal History: Reports: Arthritis, Fracture Hematologic History: Reports: Blood Transfusion(s) Oncologic (Cancer) History: Reports: Prostate - Infectious Disease History Infectious Disease History: Reports: Chicken Pox, Measles, Mumps - Past Surgical History HEENT Surgical History: Reports: Cataract Surgery Cardiovascular Surgical History: Reports: Coronary Artery Stent, Other (See Below) Other Cardiovascular Surgeries/Procedures: angiogram with angioplasty of both legs GI Surgical History: Reports: Colonoscopy, EGD Male Surgical History: Reports: Other (See Below) Other Male Surgeries/Procedures: prostate removed Musculoskeletal Surgical History: Reports: Hip Replacement Dermatological Surgical History: Reports: Skin Biopsy Social & Family History - Family History Family Medical History: Unobtainable - Tobacco Use Smoking Status *Q: Never Smoker - Caffeine Use Caffeine Use: Reports: None - Recreational Drug Use Recreational Drug Use: No ED ROS GENERAL - Review of Systems Review Of Systems: See Below Constitutional: Denies: Fever, Chills Respiratory: Denies: Shortness of Breath Cardiovascular: Denies: Chest Pain Skin: Reports: Bruising Neurological: Reports: Other (Patient had some left leg pain with the revascularization initially, feels much better today.) Psychiatric: Reports: No Symptoms ED EXAM, GENERAL - Physical Exam Exam: See Below Exam Limited By: No Limitations General Appearance: Alert, No Apparent Distress Respiratory/Chest: No Respiratory Distress GI/Abdominal: Normal Bowel Sounds, Soft (Male) Exam: Other (There is an elongated, swollen hematoma about 8 cm long and 3 cm wide just above the inguinal ligament on the left side. There is a fair amount of ecchymosis and light tenderness to palpation but no erythema or redness) Course - Vital Signs Last Recorded V/S: Last Vital Signs Temp 97.7 F 02/12/20 11:34 Pulse 56 L 02/12/20 11:34 Resp 16 02/12/20 11:34 BP 163/65 H 02/12/20 11:34 Pulse Ox 100 02/12/20 11:34 - Re-Assessments/Exams Free Text/Narrative Re-Assessment/Exam: 02/12/20 11:57 Left groin postoperative hematoma has developed after the procedure. I reassured the patient, Dr. Harry Hussein, his primary provider is nearby and will come and take a look at it today so he can reexamine it in 48 hours. Departure - Departure Time of Disposition: 12:22 Disposition: Home, Self-Care 01 Clinical Impression: Hematoma of groin Instructions: Angiogram, Care After, [id number] Referrals: Harry Hussein Sr, MD [Primary Care Provider] - Forms: ED Department Discharge Care Plan Goals: Warm compresses to the area may keep the hematoma soft, recheck in 2 to 3 days. Sepsis Event Note (ED) - Evaluation Sepsis Screening Result: No Definite Risk - Focused Exam Vital Signs: Vital Signs Temp Pulse Resp BP Pulse Ox 02/12/20 11:34 97.7 F 56 L 16 163/65 H 100 02/12/20 11:29 97.7 F 56 L 16 163/65 H 100
== END 2020-02-12 12:22 | disposition home or self-care (01) ==
LOC: JP.ED 11:12
DX: I97.638 Postprocedural hematoma of a circulatory system organ or structure following other circulatory system procedure (principal); I10 Essential (primary) hypertension; I48.91 Unspecified atrial fibrillation; I25.2 Old myocardial infarction; E78.00 Pure hypercholesterolemia, unspecified; J44.9 Chronic obstructive pulmonary disease, unspecified; Z79.82 Long term (current) use of aspirin; Z79.899 Other long term (current) drug therapy; Z79.01 Long term (current) use of anticoagulants; Z95.5 Presence of coronary angioplasty implant and graft; Z98.890 Other specified postprocedural states
CPT/HCPCS: 99283

== ENCOUNTER 2020-03-17 07:32 | Inpatient (IN) | payer MEDICARE, BC ==
[2020-03-17] MEDS ORDERED: Dextrose 5%-0.9% NaCl 1,000 ML IV SCH (08:45)
--- NOTE | 2020-03-17 10:11 | CRLCR ---
INDICATION: cough, fever, negative covid test 2 days ago HISTORY: Cough and fever. COMPARISON: 01/17/2014. TECHNIQUE: Chest, 2 views. FINDINGS: Heart size and pulmonary vasculature are within normal limits. There is pulmonary hyperinflation. There is no pneumothorax. There is airspace disease at the right lung base. This is new from 01/17/2014. The bowel gas pattern is normal in the upper abdomen. IMPRESSION: 1. Right lower lobe pneumonia. 2. Radiographic followup is advised to document resolution. Dictated by Arcadio Stapleton MD @ 03/17/2020 10:09:30 AM Dictated by: Arcadio Stapleton MD @ 03/17/2020 10:09:38 (Electronically Signed)
[2020-03-17] MEDS: CEFTRIAXONE IV SCH (10:50)
[2020-03-17] MEDS: SODIUM CHLORIDE 0.9% IV SCH (10:50)
[2020-03-17] MEDS ORDERED: Nitroglycerin 0.4 MG Tab.SL SL PRN (12:45)
[2020-03-17] MEDS ORDERED: Warfarin 5 MG Tab PO ONE (13:09)
[2020-03-17] MEDS: Metoprolol Succinate 50 MG Tab.ER PO SCH ×2 (14:37→20:50)
[2020-03-17] MEDS: Acetaminophen 325 MG Tab PO PRN ×2 (14:42→20:44)
[2020-03-17] MEDS: Tiotropium Bromide 4 GM Inhalation Spray INH SCH ×2 (17:24→20:48)
[2020-03-17] MEDS: Montelukast 10 MG Tab PO SCH (17:28)
[2020-03-17] MEDS ORDERED: Ibuprofen 400 MG Tab PO ONE (17:28)
[2020-03-17] MEDS ORDERED: Levofloxacin/Dextrose 5%-Water 500 MG in Premix Bag 1 BAG IV SCH (18:00)
[2020-03-17] MEDS: [UNRECOGNIZED DRUG - MIXTURE] PO SCH (20:49)
[2020-03-17] MEDS: Fish Oil/Omega-3 Fatty Acids 1 Gm Cap PO SCH (20:50)
[2020-03-17] MEDS: atorvaSTATin 10 MG Tab PO SCH (20:50)
[2020-03-17] MEDS: Ascorbic Acid 500 MG Tab PO SCH (20:51)
--- NOTE | 2020-03-17 21:17 | PCM.HP.2 ---
H&P History of Present Illness - General Date of Service: 03/17/20 Admit Problem/Dx: Admission Diagnosis/Problem Admission Diagnosis/Problem Pneumonia Source of Information: Patient History Limitations: Reports: No Limitations - History of Present Illness Initial Comments - Free Text/Narative: Jordy is a 89-year-old white male who came to the office yesterday having a fever of 100.2 and having extreme weakness. Since there was no room in the hospital he did not want to go any place else so I gave him a shot of Rocephin 1 g IM and he went home. The said they got no sleep last night and he is extremely weak and tired. Yesterday there was evidence of pneumonia in the right lung I auscultation of the lungs. Duration of Symptoms: Reports: Hour(s): Location: Reports: Generalized Severity: Moderate Improves with: Reports: Movement Associated Symptoms: Reports: Cough, Shortness of Breath, Weakness - Related Data Allergies/Adverse Reactions: Allergies Allergy/AdvReac Type Severity Reaction Status Date / Time No Known Allergies Allergy Verified 02/12/20 11:31 Home Medications: Home Meds Metoprolol Succinate 50 mg PO BID 01/17/14 [History] Montelukast [Singulair] 10 mg PO QPM 01/17/14 [History] Aspirin [Ecotrin EC] 81 mg PO DAILY 12/14/15 [History] Nitroglycerin 0.4 mg SL ASDIRECTED 12/14/15 [History] Tiotropium [Spiriva HandiHaler] 2 puff IH QPM 12/14/15 [History] Warfarin Sodium 5 mg PO DAILY 12/14/15 [History] Cholecalciferol (Vitamin D3) [Vitamin D3] 1,000 unit PO DAILY 02/12/20 [History] Furosemide 20 mg PO DAILY 02/12/20 [History] Losartan [Cozaar] 50 mg PO DAILY 02/12/20 [History] Ascorbic Acid [Vitamin C] 1,000 mg PO BID 03/17/20 [History] Ca/D3/Mag Ox/Zinc/Skiver Machine/Wilber/Bor [Calcium 600-D3 Plus Caplet] 600 mg PO BID 03/17/20 [History] Glucosam/Chondr/Collagn/Hyalur [Glucosamine & Chondroitin Cap] 1 each PO DAILY 03/17/20 [History] Krill/Om-3/DHA/EPA/Phospho/Ast [Krill Oil 500 mg Softgel] 500 mg PO BID 03/17/20 [History] Multivitamin [Multivitamins] 1 each PO DAILY 03/17/20 [History] atorvaSTATin [Lipitor] 10 mg PO BEDTIME 03/17/20 [History] Past Medical History HEENT History: Reports: Cataract, Hard of Hearing, Impaired Vision Cardiovascular History: Reports: Afib, Arrhythmia, CAD, High Cholesterol, Hypertension, [place], Stents Respiratory History: Reports: Asthma, COPD Gastrointestinal History: Reports: GERD Genitourinary History: Reports: Prostate Disorder Musculoskeletal History: Reports: Arthritis, Fracture Hematologic History: Reports: Blood Transfusion(s) Oncologic (Cancer) History: Reports: Basal Cell Carcinoma, Prostate - Infectious Disease History Infectious Disease History: Reports: Chicken Pox, Measles, Mumps - Past Surgical History HEENT Surgical History: Reports: Cataract Surgery Cardiovascular Surgical History: Reports: Coronary Artery Stent, Other (See Below) Other Cardiovascular Surgeries/Procedures: angiogram with angioplasty of both legs January 18 and February 09, 2020 in [place] Respiratory Surgical History: Reports: None GI Surgical History: Reports: Colonoscopy, EGD Male Surgical History: Reports: Other (See Below) Other Male Surgeries/Procedures: prostate removed Musculoskeletal Surgical History: Reports: Hip Replacement Other Musculoskeletal Surgeries/Procedures:: Right hip replacement x2 Dermatological Surgical History: Reports: Skin Biopsy Social & Family History - Family History Family Medical History: Unobtainable - Tobacco Use Smoking Status *Q: Former Smoker Used Tobacco, but Quit: Yes Month/Year Tobacco Last Used: 50 years ago Second Hand Smoke Exposure: No - Caffeine Use Caffeine Use: Reports: None - Recreational Drug Use Recreational Drug Use: No H&P Review of Systems - Review of Systems: Review Of Systems: See Below General: Reports: Fever, Chills, Weakness, Decreased Appetite HEENT: Reports: Sore Throat Pulmonary: Reports: Shortness of Breath, Cough Cardiovascular: Reports: No Symptoms Gastrointestinal: Reports: No Symptoms Genitourinary: Reports: No Symptoms Musculoskeletal: Reports: No Symptoms Skin: Reports: No Symptoms Psychiatric: Reports: No Symptoms Neurological: Reports: Difficulty Walking, Weakness, Gait Disturbance Hematologic/Lymphatic: Reports: No Symptoms Immunologic: Reports: No Symptoms Exam - Exam Exam: See Below - Vital Signs Vital Signs: Last Vital Signs Temp 99.6 F 03/17/20 20:44 Pulse 72 03/17/20 20:50 Resp 18 03/17/20 19:00 BP 118/54 L 03/17/20 20:50 Pulse Ox 92 L 03/17/20 19:00 Weight: 173 lb - Exam General: Alert, Oriented, Cooperative, Moderate Distress HEENT: PERRLA, Conjunctiva Clear, EACs Clear, Hearing Intact, Mucosa Moist & [place], Nares Patent, Normal Nasal Septum, Posterior Pharynx Clear, Pupils Equal, Pupils Reactive, TMs Clear Neck: Supple Lungs: Rales (rales in the lower mid right lung perez to auscultation.) Cardiovascular: Irregular Rhythm GI/Abdominal Exam: Normal Bowel Sounds, Soft, Non-Tender, No Organomegaly, No Distention, No Abnormal Bruit, No Mass, Pelvis Stable Extremities: Normal Inspection Peripheral Pulses: 1+: Radial (L), Radial (R) Skin: Warm, Dry, Intact Neurological: Cranial Nerves Intact, Reflexes Equal Bilateral Neuro Extensive - Mental Status: Alert, Oriented x3, Normal Mood/Affect, Normal Cognition Neuro Extensive - Motor, Sensory, Reflexes: CN II-XII Intact, Normal Gait, Normal Reflexes Psychiatric: Alert, Normal Affect - Patient Data Lab Results Last 24 hrs: Laboratory Results - last 24 hr 03/17/20 03/17/20 03/17/20 Range/Units 08:03 08:03 08:03 WBC 11.2 H (4.5-11.0) K/uL RBC 4.11 L (4.30-5.90) M/uL Hgb 12.4 D (12.0-15.0) g/dL Hct 38.2 L (40.0-54.0) % MCV 93 (80-98) fL MCH 30 (27-31) pg MCHC 33 (32-36) % Plt Count 258 (150-400) K/uL Neut % (Auto) 89 H (36-66) % Lymph % (Auto) 4 L (24-44) % Harris % (Auto) 7 H (2-6) % Eos % (Auto) 0 L (2-4) % Baso % (Auto) 0 (0-1) % PT 32.6 H (9.5-12.0) sec INR 3.06 H (0.80-1.20) Sodium 139 L (140-148) mmol/L Potassium 3.8 (3.6-5.2) mmol/L Chloride 105 (100-108) mmol/L Carbon Dioxide 22 (21-32) mmol/L Anion Gap 15.8 H (5.0-14.0) mmol/L BUN 36 H (7-18) mg/dL Creatinine 1.7 H (0.8-1.3) mg/dL Est Cr Clr Drug Dosing 33.34 mL/min Estimated GFR (MDRD) 38 L (>60) Glucose 135 H (74-106) mg/dL Calcium 9.5 (8.5-10.1) mg/dL Total Bilirubin 0.7 (0.2-1.0) mg/dL AST 55 H D (15-37) U/L ALT 49 (12-78) U/L Alkaline Phosphatase 78 (46-116) U/L Total Protein 6.8 (6.4-8.2) g/dL Albumin 2.3 L (3.4-5.0) g/dL Globulin 4.5 H (2.3-3.5) g/dL Albumin/Globulin Ratio 0.5 L (1.2-2.2) Urine Color (YELLOW) Urine Appearance (CLEAR) Urine pH (5.0-8.0) Ur Specific [place] (1.008-1.030) Urine Protein (NEGATIVE) mg/dL Urine Glucose (UA) (NEGATIVE) mg/dL Urine Ketones (NEGATIVE) mg/dL Urine Occult Blood (NEGATIVE) Urine Nitrite (NEGATIVE) Urine Bilirubin (NEGATIVE) Urine Urobilinogen (0.2-1.0) EU/dL Ur Leukocyte Esterase (NEGATIVE) Urine RBC (0-5) Urine WBC (0-5) Ur Epithelial Cells Amorphous Sediment Urine Bacteria Urine Mucus 03/17/20 Range/Units 10:45 WBC (4.5-11.0) K/uL RBC (4.30-5.90) M/uL Hgb (12.0-15.0) g/dL Hct (40.0-54.0) % MCV (80-98) fL MCH (27-31) pg MCHC (32-36) % Plt Count (150-400) K/uL Neut % (Auto) (36-66) % Lymph % (Auto) (24-44) % Harris % (Auto) (2-6) % Eos % (Auto) (2-4) % Baso % (Auto) (0-1) % PT (9.5-12.0) sec INR (0.80-1.20) Sodium (140-148) mmol/L Potassium (3.6-5.2) mmol/L Chloride (100-108) mmol/L Carbon Dioxide (21-32) mmol/L Anion Gap (5.0-14.0) mmol/L BUN (7-18) mg/dL Creatinine (0.8-1.3) mg/dL Est Cr Clr Drug Dosing mL/min Estimated GFR (MDRD) (>60) Glucose (74-106) mg/dL Calcium (8.5-10.1) mg/dL Total Bilirubin (0.2-1.0) mg/dL AST (15-37) U/L ALT (12-78) U/L Alkaline Phosphatase (46-116) U/L Total Protein (6.4-8.2) g/dL Albumin (3.4-5.0) g/dL Globulin (2.3-3.5) g/dL Albumin/Globulin Ratio (1.2-2.2) Urine Color Yellow (YELLOW) Urine Appearance Cloudy A (CLEAR) Urine pH 5.0 (5.0-8.0) Ur Specific [place] 1.020 (1.008-1.030) Urine Protein 100 H (NEGATIVE) mg/dL Urine Glucose (UA) Negative (NEGATIVE) mg/dL Urine Ketones Negative (NEGATIVE) mg/dL Urine Occult Blood Moderate H (NEGATIVE) Urine Nitrite Negative (NEGATIVE) Urine Bilirubin Negative (NEGATIVE) Urine Urobilinogen 0.2 (0.2-1.0) EU/dL Ur Leukocyte Esterase Negative (NEGATIVE) Urine RBC 5-10 H (0-5) Urine WBC 0-5 (0-5) Ur Epithelial Cells Few Amorphous Sediment Moderate Urine Bacteria Few Urine Mucus Few Result Diagrams: 03/17/20 08:03 03/17/20 08:03 Sepsis Event Note - Evaluation Sepsis Screening Result: No Definite Risk - Focused Exam Vital Signs: Vital Signs Temp Temp Pulse Pulse Resp BP BP 03/17/20 20:50 72 118/54 L 03/17/20 20:44 99.6 F 03/17/20 20:40 118/51 L 03/17/20 19:00 100.2 F 84 18 96/47 L 03/17/20 18:55 99.6 F 03/17/20 17:55 102.5 F H 03/17/20 17:22 102.5 F H 03/17/20 16:09 102.2 F H 99 16 144/67 H 03/17/20 15:12 102.5 F H 03/17/20 15:00 101.6 F H 97 16 134/52 L 03/17/20 14:42 101.6 F H 03/17/20 14:37 97 134/52 L 03/17/20 11:46 100.5 F 71 18 111/41 L Pulse Ox 03/17/20 20:50 03/17/20 20:44 03/17/20 20:40 03/17/20 19:00 92 L 03/17/20 18:55 03/17/20 17:55 03/17/20 17:22 03/17/20 16:09 92 L 03/17/20 15:12 03/17/20 15:00 92 L 03/17/20 14:42 03/17/20 14:37 03/17/20 11:46 91 L Problem List Initiated/Reviewed/Updated: Yes Orders Last 24hrs: Active Orders 24 hr Category Date Time Status Patient Status [ADT] Routine ADT 03/17/20 08:00 Active Dietary Supplements [RC] BIDMEALS Care 03/17/20 08:41 Active Consult to Physical Therapy [PT Evaluation and Cons 03/17/20 09:58 Active Treatment] [CONS] Routine Regular Diet [DIET] Diet 03/17/20 Lunch Active CULTURE BLOOD [BC] Urgent Lab 03/17/20 08:55 Received CULTURE BLOOD [BC] Urgent Lab 03/17/20 09:03 Received INR,PT,PROTHROMBIN TIME [COAG] DAILY Lab 03/18/20 05:11 Ordered INR,PT,PROTHROMBIN TIME [COAG] DAILY Lab 03/19/20 05:11 Ordered INR,PT,PROTHROMBIN TIME [COAG] DAILY Lab 03/20/20 05:11 Ordered INR,PT,PROTHROMBIN TIME [COAG] DAILY Lab 03/21/20 05:11 Ordered Acetaminophen [TylenoL] Med 03/17/20 13:11 Active 650 mg PO Q4H PRN Ascorbic Acid [Vitamin C] Med 03/17/20 21:00 Active 1,000 mg PO BID Aspirin [Halfprin] Med 03/18/20 09:00 Active 81 mg PO DAILY Ca/D3/Mag Ox/Zinc/Skiver Machine/Wilber/Bor [Calcium 600-D3 Plus Med 03/17/20 21:00 Active Caplet] 0 mg PO BID Cholecalciferol (Vitamin D3) [Vitamin D3] Med 03/18/20 09:00 Active 25 mcg PO DAILY Dextrose 5%-0.9% NaCl [Dextrose 5%-Normal Saline] 1,000 Med 03/17/20 08:45 Active ml IV ASDIRECTED Fish Oil/[place]-3 Fatty Acids [Fish Oil] Med 03/17/20 21:00 Active 1 gm PO BID Furosemide [Lasix] Med 03/18/20 09:00 Active 20 mg PO DAILY Glucosam/Chondr/Collagn/Hyalur [Glucosamine & Med 03/18/20 09:00 Active Chondroitin Cap] 0 each PO DAILY Levofloxacin/Dextrose 5%-Water [Levaquin in D5W 250 MG/ Med 03/19/20 18:00 Active 50 ML] 250 mg Premix Bag 1 bag IV Q48H Losartan [Cozaar] Med 03/18/20 09:00 Active 50 mg PO DAILY Metoprolol Succinate [Toprol XL] Med 03/17/20 14:30 Active 50 mg PO BID Montelukast [Singulair] Med 03/17/20 17:00 Active 10 mg PO QPM Multivitamins w-Iron/Ca/FA/Min [Thera M Plus] Med 03/18/20 09:00 Active 1 tab PO DAILY Nitroglycerin [Nitrostat] Med 03/17/20 12:45 Active 0.4 mg SL ASDIRECTED PRN Tiotropium [place] [Spiriva Respimat] Med 03/17/20 15:00 Active 0 gm INH QPM Warfarin [Coumadin] Med 03/18/20 13:00 Once 2.5 mg PO ONETIME ONE atorvaSTATin [Lipitor] Med 03/17/20 21:00 Active 10 mg PO BEDTIME cefTRIAXone [Rocephin] 1 gm Med 03/17/20 10:00 Active Sodium Chloride 0.9% [Normal Saline] 1 ml IV Q24H Blood Culture x2 Reflex Set [OM.PC] Urgent Oth 03/17/20 08:42 Ordered Medication Orders Acetaminophen (Tylenol) 650 mg PO Q4H PRN PRN Reason: fever/pain Last Admin: 03/17/20 20:44 Dose: 650 mg Documented by: Admin: 03/17/20 14:42 Dose: 650 mg Documented by: GEGE Ascorbic Acid (Vitamin C) 1,000 mg PO BID [facility] Last Admin: 03/17/20 20:51 Dose: 1,000 mg Documented by: KRISTI Aspirin (Halfprin) 81 mg PO DAILY [facility] Atorvastatin Calcium (Lipitor) 10 mg PO BEDTIME [facility] Last Admin: 03/17/20 20:50 Dose: 10 mg Documented by: KRISTI Cholecalciferol (Vitamin D3) 25 mcg PO DAILY [facility] Fish Oil (Fish Oil) 1 gm PO BID [facility] Last Admin: 03/17/20 20:50 Dose: 1 gm Documented by: KRISTI Furosemide (Lasix) 20 mg PO DAILY [facility] Dextrose/Sodium Chloride (Dextrose 5%-Normal Saline) 1,000 mls @ 0 mls/hr IV ASDIRECTED [facility] Ceftriaxone Sodium 1 gm/ (Sodium Chloride) 1 mls @ 2 mls/hr IV Q24H [facility] Last Admin: 03/17/20 10:50 Dose: 2 mls/hr Documented by: GEGE Levofloxacin/Dextrose 250 mg/ (Premix) 50 mls @ 50 mls/hr IV Q48H [facility] Losartan Potassium (Cozaar) 50 mg PO DAILY [facility] Metoprolol Succinate (Toprol Xl) 50 mg PO BID [facility] Last Admin: 03/17/20 20:50 Dose: 50 mg Documented by: Admin: 03/17/20 14:37 Dose: 50 mg Documented by: GEGE Montelukast Sodium (Singulair) 10 mg PO QPM [facility] Last Admin: 03/17/20 17:28 Dose: 10 mg Documented by: GEGE Multivitamins/Minerals (Thera M Plus) 1 tab PO DAILY [facility] Nitroglycerin (Nitrostat) 0.4 mg SL ASDIRECTED PRN PRN Reason: CHEST PAIN [Calcium 600-D3 Plus (Rosas)Pom) 0 mg PO BID [facility] Last Admin: 03/17/20 20:49 Dose: Not Given Documented by: KRISTI Glucosamine & Chondroitin 1 Cap Pom 0 each PO DAILY [facility] Tiotropium [place] (Spiriva Respimat) 0 gm INH QPM [facility] Last Admin: 03/17/20 20:48 Dose: Not Given Documented by: Admin: 03/17/20 17:24 Dose: 4 gm Documented by: GEGE Warfarin Sodium (Coumadin) 2.5 mg PO ONETIME ONE Stop: 03/18/20 13:01 Assessment/Plan Comment:: Assessment/Plan: #1. Pneumonia: The CXR did confirm neumonia. Will continue with Rochephin. Blood and urine cultures are pending. #2. Atrial fibrillation: His INR is 3.09. He has been on 5 mg of Coumadin daily but his INR was extremely high will cut back to 2.5 one day and 5 mg the next. #3. Hypertension: We'll continue with losartan. #4. Atherosclerotic heart disease with hyperlipidemia: We will continue with the statin medication. #5. Chronic renal failure we will monitor closely. #6. Atherosclerosis lower extremities: He recently had angioplasty of both legs and the legs have healed as he did have open wounds in the leg. #7. Cancer of the prostate: Followed by the oncologist. #8. Seasonal allergies: Continue with medication
[2020-03-18] MEDS: Metoprolol Succinate 50 MG Tab.ER PO SCH ×2 (08:57→20:33)
[2020-03-18] MEDS: Furosemide 20 MG Tab PO SCH (08:57)
[2020-03-18] MEDS: Aspirin 81 MG Tab.EC PO SCH (08:57)
[2020-03-18] MEDS: Cholecalciferol (Vitamin D3) 25 MCG Tab PO SCH (08:57)
[2020-03-18] MEDS: Fish Oil/Omega-3 Fatty Acids 1 Gm Cap PO SCH ×2 (08:57→20:31)
[2020-03-18] MEDS: Ascorbic Acid 500 MG Tab PO SCH ×2 (08:58→20:32)
[2020-03-18] MEDS: Multivitamins with Iron/Calcium/Folic Acid/Minerals Tab PO SCH (08:58)
[2020-03-18] MEDS: [UNRECOGNIZED DRUG - MIXTURE] PO SCH ×2 (09:01→20:29)
[2020-03-18] MEDS: CHONDROITIN PO SCH (09:01)
[2020-03-18] MEDS: GLUCOSAMINE PO SCH (09:01)
[2020-03-18] MEDS: SODIUM CHLORIDE 0.9% IV SCH (10:02)
[2020-03-18] MEDS: CEFTRIAXONE IV SCH (10:02)
[2020-03-18] MEDS: Acetaminophen 325 MG Tab PO PRN ×2 (11:22→19:45)
[2020-03-18] MEDS ORDERED: cefTRIAXone 1 GM in Sodium Chloride 0.9% 50 ML IV SCH (11:25)
[2020-03-18] MEDS: Losartan 50 MG Tab PO SCH (12:03)
[2020-03-18] MEDS ORDERED: Warfarin 2.5 MG Tab PO ONE (13:00)
--- NOTE | 2020-03-18 15:38 | PCM.PN ---
- General Info Date of Service: 03/18/20 Functional Status: Reports: Pain Controlled - Review of Systems General: Reports: Weakness HEENT: Reports: No Symptoms Pulmonary: Reports: Shortness of Breath, Cough, Sputum Cardiovascular: Reports: No Symptoms Gastrointestinal: Reports: No Symptoms Genitourinary: Reports: No Symptoms Musculoskeletal: Reports: No Symptoms Skin: Reports: No Symptoms Neurological: Reports: No Symptoms Psychiatric: Reports: No Symptoms - Patient Data Vitals - Most Recent: Last Vital Signs Temp 100.6 F 03/18/20 15:00 Pulse 85 03/18/20 15:00 Resp 16 03/18/20 15:00 BP 132/50 L 03/18/20 15:00 Pulse Ox 91 L 03/18/20 15:00 Weight - Most Recent: 173 lb I&O - Last 24 Hours: Intake & Output 03/18/20 03/18/20 03/18/20 06:59 14:59 22:59 Intake Total 772 1010 Output Total 250 Balance 772 760 Lab Results Last 24 Hours: Laboratory Results - last 24 hr 03/18/20 03/18/20 03/18/20 Range/Units 05:42 05:42 05:42 WBC 13.2 H (4.5-11.0) K/uL RBC 4.03 L (4.30-5.90) M/uL Hgb 12.2 (12.0-15.0) g/dL Hct 37.7 L (40.0-54.0) % MCV 94 (80-98) fL MCH 30 (27-31) pg MCHC 32 (32-36) % Plt Count 288 (150-400) K/uL Neut % (Auto) 86 H (36-66) % Lymph % (Auto) 6 L (24-44) % [place] % (Auto) 7 H (2-6) % Eos % (Auto) 1 L (2-4) % Baso % (Auto) 0 (0-1) % PT 46.0 H (9.5-12.0) sec INR 4.34 H* (0.80-1.20) Sodium 142 (140-148) mmol/L Potassium 4.0 (3.6-5.2) mmol/L Chloride 107 (100-108) mmol/L Carbon Dioxide 24 (21-32) mmol/L Anion Gap 11.2 (5.0-14.0) mmol/L BUN 38 H (7-18) mg/dL Creatinine 1.7 H (0.8-1.3) mg/dL Est Cr Clr Drug Dosing 33.34 mL/min Estimated GFR (MDRD) 38 L (>60) Glucose 121 H (74-106) mg/dL Calcium 9.7 (8.5-10.1) mg/dL Hardik Results Last 24 Hours: Microbiology 03/17/20 09:03 Aerobic Blood Culture - Preliminary Blood - Arm, Right NO GROWTH AFTER 1 DAY Anaerobic Blood Culture - Preliminary NO GROWTH AFTER 1 DAY 03/17/20 08:55 Aerobic Blood Culture - Preliminary Blood - Arm, Right NO GROWTH AFTER 1 DAY Anaerobic Blood Culture - Preliminary NO GROWTH AFTER 1 DAY Med Orders - Current: Current Medications Acetaminophen (Tylenol) 650 mg PO Q4H PRN PRN Reason: fever/pain Last Admin: 03/18/20 11:22 Dose: 650 mg Documented by: Ascorbic Acid (Vitamin C) 1,000 mg PO BID [facility] Last Admin: 03/18/20 08:58 Dose: 1,000 mg Documented by: Aspirin (Halfprin) 81 mg PO DAILY [facility] Last Admin: 03/18/20 08:57 Dose: 81 mg Documented by: Atorvastatin Calcium (Lipitor) 10 mg PO BEDTIME [facility] Last Admin: 03/17/20 20:50 Dose: 10 mg Documented by: Cholecalciferol (Vitamin D3) 25 mcg PO DAILY [facility] Last Admin: 03/18/20 08:57 Dose: 25 mcg Documented by: Fish Oil (Fish Oil) 1 gm PO BID [facility] Last Admin: 03/18/20 08:57 Dose: 1 gm Documented by: Furosemide (Lasix) 20 mg PO DAILY [facility] Last Admin: 03/18/20 08:57 Dose: 20 mg Documented by: Dextrose/Sodium Chloride (Dextrose 5%-Normal Saline) 1,000 mls @ 0 mls/hr IV ASDIRECTED [facility] Levofloxacin/Dextrose 250 mg/ (Premix) 50 mls @ 50 mls/hr IV Q48H [facility] Ceftriaxone Sodium 1 gm/ (Sodium Chloride) 50 mls @ 100 mls/hr IV Q24H [facility] Losartan Potassium (Cozaar) 50 mg PO DAILY [facility] Last Admin: 03/18/20 12:03 Dose: 50 mg Documented by: Metoprolol Succinate (Toprol Xl) 50 mg PO BID [facility] Last Admin: 03/18/20 08:57 Dose: 50 mg Documented by: Montelukast Sodium (Singulair) 10 mg PO QPM [facility] Last Admin: 03/17/20 17:28 Dose: 10 mg Documented by: Multivitamins/Minerals (Thera M Plus) 1 tab PO DAILY [facility] Last Admin: 03/18/20 08:58 Dose: 1 tab Documented by: Nitroglycerin (Nitrostat) 0.4 mg SL ASDIRECTED PRN PRN Reason: CHEST PAIN [Calcium 600-D3 Plus (Rosas)Pom) 0 mg PO BID [facility] Last Admin: 03/18/20 09:01 Dose: Not Given Documented by: Glucosamine & Chondroitin 1 Cap Pom 0 each PO DAILY [facility] Last Admin: 03/18/20 09:01 Dose: Not Given Documented by: Tiotropium [place] (Spiriva Respimat) 0 gm INH QPM [facility] Last Admin: 03/17/20 20:48 Dose: Not Given Documented by: Discontinued Medications Ceftriaxone Sodium 1 gm/ (Sodium Chloride) 1 mls @ 2 mls/hr IV Q24H [facility] Last Admin: 03/18/20 10:02 Dose: 2 mls/hr Documented by: Levofloxacin/Dextrose 500 mg/ (Premix) 100 mls @ 100 mls/hr IV Q24H [facility] Stop: 03/17/20 18:59 Last Admin: 03/17/20 17:55 Dose: 100 mls/hr Documented by: Ibuprofen (Motrin) 400 mg PO ONETIME ONE Stop: 03/17/20 17:29 Last Admin: 03/17/20 17:55 Dose: 400 mg Documented by: Warfarin Sodium (Coumadin) 5 mg PO ONETIME ONE Stop: 03/17/20 13:10 Last Admin: 03/17/20 14:36 Dose: 5 mg Documented by: Warfarin Sodium (Coumadin) 2.5 mg PO ONETIME ONE Stop: 03/18/20 13:01 - Exam General: Alert, Oriented HEENT: Pupils Equal, Pupils Reactive, EOMI, Mucous Membr. Moist/[place] Neck: Supple Lungs: Decreased Breath Sounds, Rhonchi Cardiovascular: Irregular Rhythm GI/Abdominal Exam: Normal Bowel Sounds, Soft, Non-Tender, No Organomegaly, No Distention, No Abnormal Bruit, No Mass, Pelvis Stable Back Exam: Normal Inspection, Full Range of Motion Extremities: Normal Inspection, Normal Range of Motion, Non-Tender, No Pedal Edema, Normal Capillary Refill Peripheral Pulses: 1+: Radial (L), Radial (R) Skin: Warm, Dry, Intact Neurological: Normal Speech, Other ([place] is improving) Psy/Mental Status: Alert, Normal Affect, Normal Mood Sepsis Event Note - Evaluation Sepsis Screening Result: No Definite Risk - Focused Exam Vital Signs: Vital Signs Temp Temp Pulse Pulse Resp BP BP 03/18/20 15:00 100.6 F 85 16 132/50 L 03/18/20 12:03 151/54 H 03/18/20 11:52 100.5 F 03/18/20 11:22 100.9 F H 03/18/20 11:09 100.9 F H 75 16 151/54 H 03/18/20 08:57 86 111/43 L 03/18/20 08:02 98.7 F 86 16 111/43 L 03/18/20 04:00 97.5 F 84 18 128/50 L Pulse Ox 03/18/20 15:00 91 L 03/18/20 12:03 03/18/20 11:52 03/18/20 11:22 03/18/20 11:09 94 L 03/18/20 08:57 03/18/20 08:02 91 L 03/18/20 04:00 94 L - Problem List Review Problem List Initiated/Reviewed/Updated: Yes - My Orders Last 24 Hours: My Active Orders 03/17/20 15:00 Tiotropium [place] [Spiriva Respimat] 0 gm INH QPM 03/17/20 17:00 Montelukast [Singulair] 10 mg PO QPM 03/17/20 21:00 Ascorbic Acid [Vitamin C] 1,000 mg PO BID Ca/D3/Mag Ox/Zinc/Photography Intern/Wilber/Bor [Calcium 600-D3 Plus Caplet] 0 mg PO BID Fish Oil/[place]-3 Fatty Acids [Fish Oil] 1 gm PO BID atorvaSTATin [Lipitor] 10 mg PO BEDTIME 03/18/20 09:00 Aspirin [Halfprin] 81 mg PO DAILY Cholecalciferol (Vitamin D3) [Vitamin D3] 25 mcg PO DAILY Furosemide [Lasix] 20 mg PO DAILY Glucosam/Chondr/Collagn/Hyalur [Glucosamine & Chondroitin Cap] 0 each PO DAILY Losartan [Cozaar] 50 mg PO DAILY Multivitamins w-Iron/Ca/FA/Min [Thera M Plus] 1 tab PO DAILY 03/19/20 05:11 INR,PT,PROTHROMBIN TIME [COAG] DAILY 03/19/20 11:00 cefTRIAXone [Rocephin] 1 gm Sodium Chloride 0.9% [Normal Saline] 50 ml IV Q24H 03/19/20 18:00 Levofloxacin/Dextrose 5%-Water [Levaquin in D5W 250 MG/50 ML] 250 mg Premix B ag 1 bag IV Q48H 03/20/20 05:11 INR,PT,PROTHROMBIN TIME [COAG] DAILY 03/21/20 05:11 INR,PT,PROTHROMBIN TIME [COAG] DAILY - Plan Plan:: Assessment/Plan: #1. Pneumonia: The CXR did confirm pneumonia. Will continue with Rochephin and Levaquin which was started yesterday afternoon as his fever was climbing. Cultures are pending as no growth day one.. WBC is 13.2 but neutrophils are dropping. #2. Atrial fibrillation: His INR is 4.09 So will hold Warfarin. #3. Hypertension: We'll continue with losartan. #4. Atherosclerotic heart disease with hyperlipidemia: We will continue with the statin medication. #5. Chronic renal failure we will monitor closely. #6. Atherosclerosis lower extremities: He recently had angioplasty of both legs and the legs have healed as he did have open wounds in the leg. #7. Cancer of the prostate: Followed by the oncologist. #8. Seasonal allergies: Continue with medication
[2020-03-18] MEDS: Tiotropium Bromide 4 GM Inhalation Spray INH SCH (17:47)
[2020-03-18] MEDS: Montelukast 10 MG Tab PO SCH (17:47)
[2020-03-18] MEDS: atorvaSTATin 10 MG Tab PO SCH (20:31)
[2020-03-19] MEDS: [UNRECOGNIZED DRUG - MIXTURE] PO SCH ×2 (08:32→21:07)
[2020-03-19] MEDS: Metoprolol Succinate 50 MG Tab.ER PO SCH ×2 (08:34→21:09)
[2020-03-19] MEDS: Fish Oil/Omega-3 Fatty Acids 1 Gm Cap PO SCH ×2 (08:34→21:05)
[2020-03-19] MEDS: Aspirin 81 MG Tab.EC PO SCH (08:34)
[2020-03-19] MEDS: Multivitamins with Iron/Calcium/Folic Acid/Minerals Tab PO SCH (08:34)
[2020-03-19] MEDS: Ascorbic Acid 500 MG Tab PO SCH ×2 (08:34→21:05)
[2020-03-19] MEDS: Losartan 50 MG Tab PO SCH (08:35)
[2020-03-19] MEDS: CHONDROITIN PO SCH ×2 (08:36→12:23)
[2020-03-19] MEDS: Furosemide 20 MG Tab PO SCH (08:36)
[2020-03-19] MEDS: GLUCOSAMINE PO SCH ×2 (08:36→12:23)
[2020-03-19] MEDS: Cholecalciferol (Vitamin D3) 25 MCG Tab PO SCH (08:36)
--- NOTE | 2020-03-19 09:18 | PCM.PN ---
- General Info Date of Service: 03/19/20 Functional Status: Reports: Pain Controlled - Review of Systems General: Reports: Weakness HEENT: Reports: No Symptoms Pulmonary: Reports: Cough Cardiovascular: Reports: No Symptoms Gastrointestinal: Reports: No Symptoms Genitourinary: Reports: No Symptoms Musculoskeletal: Reports: No Symptoms Skin: Reports: No Symptoms Neurological: Reports: No Symptoms Psychiatric: Reports: No Symptoms - Patient Data Vitals - Most Recent: Last Vital Signs Temp 99.5 F 03/19/20 07:00 Pulse 85 03/19/20 08:34 Resp 18 03/19/20 07:00 BP 147/78 H 03/19/20 08:35 Pulse Ox 95 03/19/20 07:00 Weight - Most Recent: 173 lb I&O - Last 24 Hours: Intake & Output 03/18/20 03/19/20 03/19/20 22:59 06:59 14:59 Intake Total 385 589 260 Output Total 200 200 Balance 185 589 60 Lab Results Last 24 Hours: Laboratory Results - last 24 hr 03/19/20 03/19/20 03/19/20 Range/Units 04:05 04:05 04:05 WBC 11.9 H (4.5-11.0) K/uL RBC 3.66 L (4.30-5.90) M/uL Hgb 11.0 L (12.0-15.0) g/dL Hct 33.9 L (40.0-54.0) % MCV 93 (80-98) fL MCH 30 (27-31) pg MCHC 32 (32-36) % Plt Count 284 (150-400) K/uL Neut % (Auto) 86 H (36-66) % Lymph % (Auto) 6 L (24-44) % [place] % (Auto) 7 H (2-6) % Eos % (Auto) 1 L (2-4) % Baso % (Auto) 0 (0-1) % PT 41.2 H (9.5-12.0) sec INR 3.88 H (0.80-1.20) Sodium 141 (140-148) mmol/L Potassium 3.7 (3.6-5.2) mmol/L Chloride 107 (100-108) mmol/L Carbon Dioxide 22 (21-32) mmol/L Anion Gap 12.5 (5.0-14.0) mmol/L BUN 33 H (7-18) mg/dL Creatinine 1.2 (0.8-1.3) mg/dL Est Cr Clr Drug Dosing 47.23 mL/min Estimated GFR (MDRD) 57 L (>60) Glucose 117 H (74-106) mg/dL Calcium 9.6 (8.5-10.1) mg/dL Total Bilirubin 0.5 (0.2-1.0) mg/dL AST 159 H D (15-37) U/L ALT 126 H (12-78) U/L Alkaline Phosphatase 118 H (46-116) U/L Total Protein 6.1 L (6.4-8.2) g/dL Albumin 1.8 L (3.4-5.0) g/dL Globulin 4.3 H (2.3-3.5) g/dL Albumin/Globulin Ratio 0.4 L (1.2-2.2) Hardik Results Last 24 Hours: Microbiology 03/17/20 09:03 Aerobic Blood Culture - Preliminary Blood - Arm, Right NO GROWTH AFTER 2 DAYS Anaerobic Blood Culture - Preliminary NO GROWTH AFTER 2 DAYS 03/17/20 08:55 Aerobic Blood Culture - Preliminary Blood - Arm, Right NO GROWTH AFTER 2 DAYS Anaerobic Blood Culture - Preliminary NO GROWTH AFTER 2 DAYS Med Orders - Current: Current Medications Acetaminophen (Tylenol) 650 mg PO Q4H PRN PRN Reason: fever/pain Last Admin: 03/18/20 19:45 Dose: 650 mg Documented by: Ascorbic Acid (Vitamin C) 1,000 mg PO BID [facility] Last Admin: 03/19/20 08:34 Dose: 1,000 mg Documented by: Aspirin (Halfprin) 81 mg PO DAILY [facility] Last Admin: 03/19/20 08:34 Dose: 81 mg Documented by: Atorvastatin Calcium (Lipitor) 10 mg PO BEDTIME [facility] Last Admin: 03/18/20 20:31 Dose: 10 mg Documented by: Cholecalciferol (Vitamin D3) 25 mcg PO DAILY [facility] Last Admin: 03/19/20 08:36 Dose: 25 mcg Documented by: Fish Oil (Fish Oil) 1 gm PO BID [facility] Last Admin: 03/19/20 08:34 Dose: 1 gm Documented by: Furosemide (Lasix) 20 mg PO DAILY [facility] Last Admin: 03/19/20 08:36 Dose: 20 mg Documented by: Dextrose/Sodium Chloride (Dextrose 5%-Normal Saline) 1,000 mls @ 0 mls/hr IV ASDIRECTED [facility] Last Admin: 03/18/20 22:05 Dose: 25 mls/hr Documented by: Levofloxacin/Dextrose 250 mg/ (Premix) 50 mls @ 50 mls/hr IV Q48H [facility] Ceftriaxone Sodium 1 gm/ (Sodium Chloride) 50 mls @ 100 mls/hr IV Q24H [facility] Losartan Potassium (Cozaar) 50 mg PO DAILY [facility] Last Admin: 03/19/20 08:35 Dose: 50 mg Documented by: Metoprolol Succinate (Toprol Xl) 50 mg PO BID [facility] Last Admin: 03/19/20 08:34 Dose: 50 mg Documented by: Montelukast Sodium (Singulair) 10 mg PO QPM [facility] Last Admin: 03/18/20 17:47 Dose: 10 mg Documented by: Multivitamins/Minerals (Thera M Plus) 1 tab PO DAILY [facility] Last Admin: 03/19/20 08:34 Dose: 1 tab Documented by: Nitroglycerin (Nitrostat) 0.4 mg SL ASDIRECTED PRN PRN Reason: CHEST PAIN [Calcium 600-D3 Plus (Rosas)Pom) 0 mg PO BID [facility] Last Admin: 03/19/20 08:32 Dose: 600 mg Documented by: Glucosamine & Chondroitin 1 Cap Pom 0 each PO DAILY [facility] Last Admin: 03/19/20 08:36 Dose: Not Given Documented by: Tiotropium [place] (Spiriva Respimat) 0 gm INH QPM [facility] Last Admin: 03/18/20 17:47 Dose: 4 gm Documented by: Discontinued Medications Ceftriaxone Sodium 1 gm/ (Sodium Chloride) 1 mls @ 2 mls/hr IV Q24H [facility] Last Admin: 03/18/20 10:02 Dose: 2 mls/hr Documented by: Levofloxacin/Dextrose 500 mg/ (Premix) 100 mls @ 100 mls/hr IV Q24H [facility] Stop: 03/17/20 18:59 Last Admin: 03/17/20 17:55 Dose: 100 mls/hr Documented by: Ibuprofen (Motrin) 400 mg PO ONETIME ONE Stop: 03/17/20 17:29 Last Admin: 03/17/20 17:55 Dose: 400 mg Documented by: Warfarin Sodium (Coumadin) 5 mg PO ONETIME ONE Stop: 03/17/20 13:10 Last Admin: 03/17/20 14:36 Dose: 5 mg Documented by: Warfarin Sodium (Coumadin) 2.5 mg PO ONETIME ONE Stop: 03/18/20 13:01 - Exam General: Alert, Oriented HEENT: Pupils Equal, Pupils Reactive, EOMI, Mucous Membr. Moist/[place] Neck: Supple Lungs: Decreased Breath Sounds, Rhonchi (right lower lung pathology) Cardiovascular: Regular Rate, Regular Rhythm GI/Abdominal Exam: Normal Bowel Sounds, Soft, Non-Tender, No Organomegaly, No Distention, No Abnormal Bruit, No Mass, Pelvis Stable Back Exam: Normal Inspection, Full Range of Motion Extremities: Normal Inspection, Normal Range of Motion, Non-Tender, No Pedal Edema, Normal Capillary Refill Peripheral Pulses: 1+: Radial (L), Radial (R) Skin: Warm, Dry, Intact Neurological: No New Focal Deficit Psy/Mental Status: Alert, Normal Affect, Normal Mood Sepsis Event Note - Evaluation Sepsis Screening Result: No Definite Risk - Focused Exam Vital Signs: Vital Signs Temp Pulse Pulse Resp BP BP Pulse Ox 03/19/20 08:35 147/78 H 03/19/20 08:34 85 146/78 H 03/19/20 07:00 99.5 F 85 18 146/78 H 95 03/19/20 03:47 99.8 F 87 18 157/59 H 93 L 03/18/20 22:38 100.8 F H 86 16 146/57 H 93 L 03/18/20 22:29 100.8 F H - Problem List Review Problem List Initiated/Reviewed/Updated: Yes - My Orders Last 24 Hours: My Active Orders 03/18/20 09:00 Aspirin [Halfprin] 81 mg PO DAILY Cholecalciferol (Vitamin D3) [Vitamin D3] 25 mcg PO DAILY Furosemide [Lasix] 20 mg PO DAILY Glucosam/Chondr/Collagn/Hyalur [Glucosamine & Chondroitin Cap] 0 each PO DAILY Losartan [Cozaar] 50 mg PO DAILY Multivitamins w-Iron/Ca/FA/Min [Thera M Plus] 1 tab PO DAILY 03/19/20 09:06 RT Acapella [RESPCARE] Routine 03/19/20 11:00 cefTRIAXone [Rocephin] 1 gm Sodium Chloride 0.9% [Normal Saline] 50 ml IV Q24H 03/19/20 18:00 Levofloxacin/Dextrose 5%-Water [Levaquin in D5W 250 MG/50 ML] 250 mg Premix Bag 1 bag IV Q48H 03/20/20 05:11 INR,PT,PROTHROMBIN TIME [COAG] DAILY 03/21/20 05:11 INR,PT,PROTHROMBIN TIME [COAG] DAILY - Plan Plan:: Assessment/Plan: #1. Pneumonia: The CXR did confirm pneumonia. Will continue with Rochephin and Levaquin. He is doing much better today. No fever. WBC 11.5. Cultures are pending as no growth day two. #2. Atrial fibrillation: His INR is 4.09 So will hold Warfarin. #3. Hypertension: We'll continue with losartan. #4. Atherosclerotic heart disease with hyperlipidemia: We will continue with the statin medication. #5. Chronic renal failure we will monitor closely. Creat. 1.2 today. #6. Atherosclerosis lower extremities: He recently had angioplasty of both legs and the legs have healed as he did have open wounds in the leg. #7. Cancer of the prostate: Followed by the oncologist. #8. Seasonal allergies: Continue with medication
[2020-03-19] MEDS ORDERED: Magnesium Hydroxide 400 MG/5 ML Susp 30 ML Cup PO PRN (09:19)
[2020-03-19] MEDS ORDERED: Docusate Sodium 100 MG Cap PO PRN (09:19)
[2020-03-19] MEDS: Lactobacillus Rhamnosus GG (Probiotic) Cap PO SCH ×2 (09:48→21:04)
[2020-03-19] MEDS: Acetaminophen 325 MG Tab PO PRN ×2 (10:44→19:29)
[2020-03-19] MEDS: cefTRIAXone 1 GM in Sodium Chloride 0.9% 50 ML IV SCH (12:23)
[2020-03-19] MEDS: Tiotropium Bromide 4 GM Inhalation Spray INH SCH (17:55)
[2020-03-19] MEDS: Montelukast 10 MG Tab PO SCH (17:55)
[2020-03-19] MEDS ORDERED: Levofloxacin/Dextrose 5%-Water 250 MG in Premix Bag 1 BAG IV SCH (18:00)
[2020-03-19] MEDS: atorvaSTATin 10 MG Tab PO SCH (21:05)
[2020-03-19] MEDS: Ibuprofen 600 MG Tab PO PRN (21:52)
[2020-03-20] MEDS: [UNRECOGNIZED DRUG - MIXTURE] PO SCH ×2 (08:11→20:10)
[2020-03-20] MEDS: CHONDROITIN PO SCH (08:12)
[2020-03-20] MEDS: Lactobacillus Rhamnosus GG (Probiotic) Cap PO SCH ×2 (08:12→20:12)
[2020-03-20] MEDS: Fish Oil/Omega-3 Fatty Acids 1 Gm Cap PO SCH ×2 (08:12→20:13)
[2020-03-20] MEDS: GLUCOSAMINE PO SCH (08:12)
[2020-03-20] MEDS: Losartan 50 MG Tab PO SCH (08:12)
[2020-03-20] MEDS: Furosemide 20 MG Tab PO SCH (08:13)
[2020-03-20] MEDS: Multivitamins with Iron/Calcium/Folic Acid/Minerals Tab PO SCH (08:13)
[2020-03-20] MEDS: Aspirin 81 MG Tab.EC PO SCH (08:13)
[2020-03-20] MEDS: Metoprolol Succinate 50 MG Tab.ER PO SCH ×2 (08:13→20:16)
[2020-03-20] MEDS: Cholecalciferol (Vitamin D3) 25 MCG Tab PO SCH (08:14)
[2020-03-20] MEDS: Ascorbic Acid 500 MG Tab PO SCH ×2 (10:33→20:14)
[2020-03-20] MEDS: cefTRIAXone 1 GM in Sodium Chloride 0.9% 50 ML IV SCH (11:35)
[2020-03-20] MEDS: Montelukast 10 MG Tab PO SCH (17:22)
[2020-03-20] MEDS: Tiotropium Bromide 4 GM Inhalation Spray INH SCH (17:22)
[2020-03-20] MEDS: Levofloxacin/Dextrose 5%-Water 500 MG in Premix Bag 1 BAG IV SCH (17:22)
[2020-03-20] MEDS: Ibuprofen 600 MG Tab PO PRN (19:26)
[2020-03-20] MEDS: atorvaSTATin 10 MG Tab PO SCH (20:14)
[2020-03-21] MEDS ORDERED: Temazepam 15 MG Cap PO PRN (01:49)
[2020-03-21] MEDS: Melatonin 3 MG Tab PO PRN ×2 (02:21→21:27)
[2020-03-21] MEDS: [UNRECOGNIZED DRUG - MIXTURE] PO SCH ×2 (08:25→21:22)
[2020-03-21] MEDS: Lactobacillus Rhamnosus GG (Probiotic) Cap PO SCH ×2 (08:27→21:22)
[2020-03-21] MEDS: Losartan 50 MG Tab PO SCH (08:27)
[2020-03-21] MEDS: GLUCOSAMINE PO SCH (08:28)
[2020-03-21] MEDS: CHONDROITIN PO SCH (08:28)
[2020-03-21] MEDS: Fish Oil/Omega-3 Fatty Acids 1 Gm Cap PO SCH ×2 (08:28→21:23)
[2020-03-21] MEDS: Multivitamins with Iron/Calcium/Folic Acid/Minerals Tab PO SCH (08:34)
[2020-03-21] MEDS: Furosemide 20 MG Tab PO SCH (08:34)
[2020-03-21] MEDS: Aspirin 81 MG Tab.EC PO SCH (08:34)
[2020-03-21] MEDS: Metoprolol Succinate 50 MG Tab.ER PO SCH ×2 (08:35→21:24)
[2020-03-21] MEDS: Ascorbic Acid 500 MG Tab PO SCH ×2 (08:35→21:26)
[2020-03-21] MEDS: Cholecalciferol (Vitamin D3) 25 MCG Tab PO SCH (08:36)
--- NOTE | 2020-03-21 09:09 | CR ---
CHEST: 2 view CLINICAL HISTORY:Pneumonia COMPARISON:12/16/2019 FINDINGS: There is persistent right lower lobe infiltrate with no significant change since prior study. Patient is a small right pleural effusion.. Lungs are generally hyperaerated. Impression: Persistent right lower lobe pneumonic infiltrate without significant interval change
[2020-03-21] MEDS: cefTRIAXone 1 GM in Sodium Chloride 0.9% 50 ML IV SCH (10:37)
--- NOTE | 2020-03-21 11:22 | CT ---
Chest wo Cont CLINICAL HISTORY: Pneumonia TECHNIQUE: Thin section axial contiguous tomographic sections were taken through the chest without contrast administration. Coronal and sagittal images were reconstructed. Auto dosage reduction and iterative reconstruction techniques employed. FINDINGS: There is a large right lower lobe pneumonia with large patchy areas of consolidation dominantly in the basal segments. There are smaller areas of consolidation in the superior segment of the lower lobe as well is some groundglass opacification. There is a small pleural effusion. There is some minimal scarring in the left apex. Left lung is otherwise clear. There are a few small pericarinal lymph nodes which are nonspecific. Scans into the upper abdomen show some small gallstones. No mass or adenopathy is seen. IMPRESSION: Large right lower lobe pneumonic infiltrate with patchy areas of consolidation. Underlying mass cannot be excluded. Continued short-term follow-up is recommended until clear.
[2020-03-21] MEDS ORDERED: Warfarin 2.5 MG Tab PO ONE (14:23)
--- NOTE | 2020-03-21 16:02 | PCM.PN ---
- General Info Date of Service: 03/20/20 Functional Status: Reports: Pain Controlled - Review of Systems General: Reports: Weakness HEENT: Reports: No Symptoms Pulmonary: Reports: Cough Cardiovascular: Reports: No Symptoms Gastrointestinal: Reports: No Symptoms Genitourinary: Reports: No Symptoms Musculoskeletal: Reports: No Symptoms Skin: Reports: No Symptoms Neurological: Reports: No Symptoms Psychiatric: Reports: No Symptoms - Patient Data Vitals - Most Recent: Last Vital Signs Temp 99.4 F 03/21/20 14:31 Pulse 84 03/21/20 14:31 Resp 18 03/21/20 14:31 BP 138/49 L 03/21/20 14:31 Pulse Ox 95 03/21/20 14:31 Weight - Most Recent: 172 lb 15.983 oz I&O - Last 24 Hours: Intake & Output 03/21/20 03/21/20 03/21/20 06:59 14:59 22:59 Intake Total 650 Output Total 350 400 Balance -350 250 Lab Results Last 24 Hours: Laboratory Results - last 24 hr 03/21/20 03/21/20 03/21/20 Range/Units 04:00 04:00 04:00 WBC 9.4 (4.5-11.0) K/uL RBC 3.68 L (4.30-5.90) M/uL Hgb 11.0 L (12.0-15.0) g/dL Hct 34.2 L (40.0-54.0) % MCV 93 (80-98) fL MCH 30 (27-31) pg MCHC 32 (32-36) % Plt Count 406 H (150-400) K/uL Neut % (Auto) 79 H (36-66) % Lymph % (Auto) 9 L (24-44) % [place] % (Auto) 9 H (2-6) % Eos % (Auto) 3 (2-4) % Baso % (Auto) 0 (0-1) % PT 23.0 H (9.5-12.0) sec INR 2.14 H (0.80-1.20) Sodium 143 (140-148) mmol/L Potassium 4.1 (3.6-5.2) mmol/L Chloride 108 (100-108) mmol/L Carbon Dioxide 24 (21-32) mmol/L Anion Gap 11.3 (5.0-14.0) mmol/L BUN 33 H (7-18) mg/dL Creatinine 1.3 (0.8-1.3) mg/dL Est Cr Clr Drug Dosing 43.60 mL/min Estimated GFR (MDRD) 52 L (>60) Glucose 116 H (74-106) mg/dL Calcium 9.7 (8.5-10.1) mg/dL Hardik Results Last 24 Hours: Microbiology 03/17/20 09:03 Aerobic Blood Culture - Preliminary Blood - Arm, Right NO GROWTH AFTER 4 DAYS Anaerobic Blood Culture - Preliminary NO GROWTH AFTER 4 DAYS 03/17/20 08:55 Aerobic Blood Culture - Preliminary Blood - Arm, Right NO GROWTH AFTER 4 DAYS Anaerobic Blood Culture - Preliminary NO GROWTH AFTER 4 DAYS Med Orders - Current: Current Medications Acetaminophen (Tylenol) 650 mg PO Q4H PRN PRN Reason: fever/pain Last Admin: 03/19/20 19:29 Dose: 650 mg Documented by: Ascorbic Acid (Vitamin C) 1,000 mg PO BID [facility] Last Admin: 03/21/20 08:35 Dose: 1,000 mg Documented by: Aspirin (Halfprin) 81 mg PO DAILY [facility] Last Admin: 03/21/20 08:34 Dose: 81 mg Documented by: Atorvastatin Calcium (Lipitor) 10 mg PO BEDTIME [facility] Last Admin: 03/20/20 20:14 Dose: 10 mg Documented by: Cholecalciferol (Vitamin D3) 25 mcg PO DAILY [facility] Last Admin: 03/21/20 08:36 Dose: 25 mcg Documented by: Docusate Sodium (Colace) 100 mg PO BID PRN PRN Reason: Constipation Last Admin: 03/19/20 09:48 Dose: 100 mg Documented by: Fish Oil (Fish Oil) 1 gm PO BID [facility] Last Admin: 03/21/20 08:28 Dose: 1 gm Documented by: Furosemide (Lasix) 20 mg PO DAILY [facility] Last Admin: 03/21/20 08:34 Dose: 20 mg Documented by: Ceftriaxone Sodium 1 gm/ (Sodium Chloride) 50 mls @ 100 mls/hr IV Q24H [facility] Last Admin: 03/21/20 10:37 Dose: 100 mls/hr Documented by: Levofloxacin/Dextrose 500 mg/ (Premix) 100 mls @ 100 mls/hr IV Q24H [facility] Last Admin: 03/20/20 17:22 Dose: 100 mls/hr Documented by: Ibuprofen (Motrin) 600 mg PO Q6H PRN PRN Reason: Fever Last Admin: 03/20/20 19:26 Dose: 600 mg Documented by: Lactobacillus Rhamnosus (Culturelle) 1 cap PO BID [facility] Last Admin: 03/21/20 08:27 Dose: 1 cap Documented by: Losartan Potassium (Cozaar) 50 mg PO DAILY [facility] Last Admin: 03/21/20 08:27 Dose: 50 mg Documented by: Magnesium Hydroxide (Milk Of Magnesia) 30 ml PO BID PRN PRN Reason: Constipation Last Admin: 03/19/20 09:48 Dose: 30 ml Documented by: Melatonin (Melatonin) 9 mg PO BEDTIME PRN PRN Reason: Sleep Last Admin: 03/21/20 02:21 Dose: 9 mg Documented by: Metoprolol Succinate (Toprol Xl) 50 mg PO BID [facility] Last Admin: 03/21/20 08:35 Dose: 50 mg Documented by: Montelukast Sodium (Singulair) 10 mg PO QPM [facility] Last Admin: 03/20/20 17:22 Dose: 10 mg Documented by: Multivitamins/Minerals (Thera M Plus) 1 tab PO DAILY [facility] Last Admin: 03/21/20 08:34 Dose: 1 tab Documented by: Nitroglycerin (Nitrostat) 0.4 mg SL ASDIRECTED PRN PRN Reason: CHEST PAIN [Calcium 600-D3 Plus (Rosas)Pom) 0 mg PO BID [facility] Last Admin: 03/21/20 08:25 Dose: 600 mg Documented by: Glucosamine & Chondroitin 1 Cap Pom 0 each PO DAILY [facility] Last Admin: 03/21/20 08:28 Dose: 1 each Documented by: Temazepam (Restoril) 15 - 30 mg PO BEDTIME PRN PRN Reason: Sleep Tiotropium [place] (Spiriva Respimat) 0 gm INH QPM [facility] Last Admin: 03/20/20 17:22 Dose: 4 gm Documented by: Discontinued Medications Dextrose/Sodium Chloride (Dextrose 5%-Normal Saline) 1,000 mls @ 0 mls/hr IV ASDIRECTED [facility] Last Admin: 03/18/20 22:05 Dose: 25 mls/hr Documented by: Ceftriaxone Sodium 1 gm/ (Sodium Chloride) 1 mls @ 2 mls/hr IV Q24H [facility] Last Admin: 03/18/20 10:02 Dose: 2 mls/hr Documented by: Levofloxacin/Dextrose 500 mg/ (Premix) 100 mls @ 100 mls/hr IV Q24H [facility] Stop: 03/17/20 18:59 Last Admin: 03/17/20 17:55 Dose: 100 mls/hr Documented by: Levofloxacin/Dextrose 250 mg/ (Premix) 50 mls @ 50 mls/hr IV Q48H [facility] Last Admin: 03/19/20 17:56 Dose: 50 mls/hr Documented by: Ibuprofen (Motrin) 400 mg PO ONETIME ONE Stop: 03/17/20 17:29 Last Admin: 03/17/20 17:55 Dose: 400 mg Documented by: Warfarin Sodium (Coumadin) 5 mg PO ONETIME ONE Stop: 03/17/20 13:10 Last Admin: 03/17/20 14:36 Dose: 5 mg Documented by: Warfarin Sodium (Coumadin) 2.5 mg PO ONETIME ONE Stop: 03/18/20 13:01 Warfarin Sodium (Coumadin) 2.5 mg PO ONETIME ONE Stop: 03/21/20 14:24 Last Admin: 03/21/20 14:50 Dose: 2.5 mg Documented by: - Exam General: Alert, Oriented HEENT: Pupils Equal, Pupils Reactive, EOMI, Mucous Membr. Moist/[place] Neck: Supple Lungs: Rhonchi (left lower lung field) Cardiovascular: Irregular Rhythm GI/Abdominal Exam: Normal Bowel Sounds, Soft, Non-Tender, No Organomegaly, No Distention, No Abnormal Bruit, No Mass, Pelvis Stable Back Exam: Normal Inspection, Full Range of Motion Extremities: Normal Inspection, Normal Range of Motion, Non-Tender, No Pedal Edema, Normal Capillary Refill Peripheral Pulses: 1+: Radial (L), Radial (R) Skin: Warm, Dry, Intact Wound/Incisions: Healing Well Neurological: No New Focal Deficit Psy/Mental Status: Alert, Normal Affect, Normal Mood Sepsis Event Note - Evaluation Sepsis Screening Result: No Definite Risk - Focused Exam Vital Signs: Vital Signs Temp Pulse Pulse Resp BP BP Pulse Ox 03/21/20 14:31 99.4 F 84 18 138/49 L 95 03/21/20 11:00 98.0 F 65 18 124/81 95 03/21/20 08:35 74 162/72 H 03/21/20 08:27 162/72 H 03/21/20 07:00 96.8 F L 74 16 162/72 H 97 - Problem List Review Problem List Initiated/Reviewed/Updated: Yes - My Orders Last 24 Hours: My Active Orders 03/20/20 18:00 Levofloxacin/Dextrose 5%-Water [Levaquin in D5W 500 MG/100 ML] 500 mg Premix Bag 1 bag IV Q24H 03/21/20 01:48 Melatonin 9 mg PO BEDTIME PRN 03/21/20 01:49 Temazepam [Restoril] 15 - 30 mg PO BEDTIME PRN 03/22/20 04:00 INR,PT,PROTHROMBIN TIME [COAG] Routine - Plan Plan:: Assessment/Plan: #1. Pneumonia: The CXR did confirm pneumonia. Will continue with Rochephin and Levaquin. He is doing much better today. No fever. WBC 11.5. Cultures are pending as no growth day two. CXR in the morning and maybe a CT of the lung. #2. Atrial fibrillation: His INR is 4.09 So will hold Warfarin. #3. Hypertension: We'll continue with losartan. #4. Atherosclerotic heart disease with hyperlipidemia: We will continue with the statin medication. #5. Chronic renal failure we will monitor closely. Creat. tomorrow. #6. Atherosclerosis lower extremities: He recently had angioplasty of both legs and the legs have healed as he did have open wounds in the leg. #7. Cancer of the prostate: Followed by the oncologist. #8. Seasonal allergies: Continue with medication
--- NOTE | 2020-03-21 16:08 | PCM.PN ---
- General Info Date of Service: 03/21/20 Functional Status: Reports: Pain Controlled - Review of Systems General: Reports: Weakness HEENT: Reports: No Symptoms Pulmonary: Reports: Cough Cardiovascular: Reports: No Symptoms Genitourinary: Reports: No Symptoms Musculoskeletal: Reports: No Symptoms Neurological: Reports: Weakness Psychiatric: Reports: No Symptoms - Patient Data Vitals - Most Recent: Last Vital Signs Temp 99.4 F 03/21/20 14:31 Pulse 84 03/21/20 14:31 Resp 18 03/21/20 14:31 BP 138/49 L 03/21/20 14:31 Pulse Ox 95 03/21/20 14:31 Weight - Most Recent: 172 lb 15.983 oz I&O - Last 24 Hours: Intake & Output 03/21/20 03/21/20 03/21/20 06:59 14:59 22:59 Intake Total 650 Output Total 350 400 Balance -350 250 Lab Results Last 24 Hours: Laboratory Results - last 24 hr 03/21/20 03/21/20 03/21/20 Range/Units 04:00 04:00 04:00 WBC 9.4 (4.5-11.0) K/uL RBC 3.68 L (4.30-5.90) M/uL Hgb 11.0 L (12.0-15.0) g/dL Hct 34.2 L (40.0-54.0) % MCV 93 (80-98) fL MCH 30 (27-31) pg MCHC 32 (32-36) % Plt Count 406 H (150-400) K/uL Neut % (Auto) 79 H (36-66) % Lymph % (Auto) 9 L (24-44) % [place] % (Auto) 9 H (2-6) % Eos % (Auto) 3 (2-4) % Baso % (Auto) 0 (0-1) % PT 23.0 H (9.5-12.0) sec INR 2.14 H (0.80-1.20) Sodium 143 (140-148) mmol/L Potassium 4.1 (3.6-5.2) mmol/L Chloride 108 (100-108) mmol/L Carbon Dioxide 24 (21-32) mmol/L Anion Gap 11.3 (5.0-14.0) mmol/L BUN 33 H (7-18) mg/dL Creatinine 1.3 (0.8-1.3) mg/dL Est Cr Clr Drug Dosing 43.60 mL/min Estimated GFR (MDRD) 52 L (>60) Glucose 116 H (74-106) mg/dL Calcium 9.7 (8.5-10.1) mg/dL Hardik Results Last 24 Hours: Microbiology 03/17/20 09:03 Aerobic Blood Culture - Preliminary Blood - Arm, Right NO GROWTH AFTER 4 DAYS Anaerobic Blood Culture - Preliminary NO GROWTH AFTER 4 DAYS 03/17/20 08:55 Aerobic Blood Culture - Preliminary Blood - Arm, Right NO GROWTH AFTER 4 DAYS Anaerobic Blood Culture - Preliminary NO GROWTH AFTER 4 DAYS Med Orders - Current: Current Medications Acetaminophen (Tylenol) 650 mg PO Q4H PRN PRN Reason: fever/pain Last Admin: 03/19/20 19:29 Dose: 650 mg Documented by: Ascorbic Acid (Vitamin C) 1,000 mg PO BID [facility] Last Admin: 03/21/20 08:35 Dose: 1,000 mg Documented by: Aspirin (Halfprin) 81 mg PO DAILY [facility] Last Admin: 03/21/20 08:34 Dose: 81 mg Documented by: Atorvastatin Calcium (Lipitor) 10 mg PO BEDTIME [facility] Last Admin: 03/20/20 20:14 Dose: 10 mg Documented by: Cholecalciferol (Vitamin D3) 25 mcg PO DAILY [facility] Last Admin: 03/21/20 08:36 Dose: 25 mcg Documented by: Docusate Sodium (Colace) 100 mg PO BID PRN PRN Reason: Constipation Last Admin: 03/19/20 09:48 Dose: 100 mg Documented by: Fish Oil (Fish Oil) 1 gm PO BID [facility] Last Admin: 03/21/20 08:28 Dose: 1 gm Documented by: Furosemide (Lasix) 20 mg PO DAILY [facility] Last Admin: 03/21/20 08:34 Dose: 20 mg Documented by: Ceftriaxone Sodium 1 gm/ (Sodium Chloride) 50 mls @ 100 mls/hr IV Q24H [facility] Last Admin: 03/21/20 10:37 Dose: 100 mls/hr Documented by: Levofloxacin/Dextrose 500 mg/ (Premix) 100 mls @ 100 mls/hr IV Q24H [facility] Last Admin: 03/20/20 17:22 Dose: 100 mls/hr Documented by: Ibuprofen (Motrin) 600 mg PO Q6H PRN PRN Reason: Fever Last Admin: 03/20/20 19:26 Dose: 600 mg Documented by: Lactobacillus Rhamnosus (Culturelle) 1 cap PO BID [facility] Last Admin: 03/21/20 08:27 Dose: 1 cap Documented by: Losartan Potassium (Cozaar) 50 mg PO DAILY [facility] Last Admin: 03/21/20 08:27 Dose: 50 mg Documented by: Magnesium Hydroxide (Milk Of Magnesia) 30 ml PO BID PRN PRN Reason: Constipation Last Admin: 03/19/20 09:48 Dose: 30 ml Documented by: Melatonin (Melatonin) 9 mg PO BEDTIME PRN PRN Reason: Sleep Last Admin: 03/21/20 02:21 Dose: 9 mg Documented by: Metoprolol Succinate (Toprol Xl) 50 mg PO BID [facility] Last Admin: 03/21/20 08:35 Dose: 50 mg Documented by: Montelukast Sodium (Singulair) 10 mg PO QPM [facility] Last Admin: 03/20/20 17:22 Dose: 10 mg Documented by: Multivitamins/Minerals (Thera M Plus) 1 tab PO DAILY [facility] Last Admin: 03/21/20 08:34 Dose: 1 tab Documented by: Nitroglycerin (Nitrostat) 0.4 mg SL ASDIRECTED PRN PRN Reason: CHEST PAIN [Calcium 600-D3 Plus (Rosas)Pom) 0 mg PO BID [facility] Last Admin: 03/21/20 08:25 Dose: 600 mg Documented by: Glucosamine & Chondroitin 1 Cap Pom 0 each PO DAILY [facility] Last Admin: 03/21/20 08:28 Dose: 1 each Documented by: Temazepam (Restoril) 15 - 30 mg PO BEDTIME PRN PRN Reason: Sleep Tiotropium [place] (Spiriva Respimat) 0 gm INH QPM [facility] Last Admin: 03/20/20 17:22 Dose: 4 gm Documented by: Discontinued Medications Dextrose/Sodium Chloride (Dextrose 5%-Normal Saline) 1,000 mls @ 0 mls/hr IV ASDIRECTED [facility] Last Admin: 03/18/20 22:05 Dose: 25 mls/hr Documented by: Ceftriaxone Sodium 1 gm/ (Sodium Chloride) 1 mls @ 2 mls/hr IV Q24H [facility] Last Admin: 03/18/20 10:02 Dose: 2 mls/hr Documented by: Levofloxacin/Dextrose 500 mg/ (Premix) 100 mls @ 100 mls/hr IV Q24H [facility] Stop: 03/17/20 18:59 Last Admin: 03/17/20 17:55 Dose: 100 mls/hr Documented by: Levofloxacin/Dextrose 250 mg/ (Premix) 50 mls @ 50 mls/hr IV Q48H [facility] Last Admin: 03/19/20 17:56 Dose: 50 mls/hr Documented by: Ibuprofen (Motrin) 400 mg PO ONETIME ONE Stop: 03/17/20 17:29 Last Admin: 03/17/20 17:55 Dose: 400 mg Documented by: Warfarin Sodium (Coumadin) 5 mg PO ONETIME ONE Stop: 03/17/20 13:10 Last Admin: 03/17/20 14:36 Dose: 5 mg Documented by: Warfarin Sodium (Coumadin) 2.5 mg PO ONETIME ONE Stop: 03/18/20 13:01 Warfarin Sodium (Coumadin) 2.5 mg PO ONETIME ONE Stop: 03/21/20 14:24 Last Admin: 03/21/20 14:50 Dose: 2.5 mg Documented by: - Exam General: Alert, Oriented HEENT: Pupils Equal, Pupils Reactive, EOMI, Mucous Membr. Moist/[place] Neck: Supple Lungs: Rhonchi (left lower lung [place] rhonchi) Cardiovascular: Irregular Rhythm GI/Abdominal Exam: Normal Bowel Sounds Back Exam: Normal Inspection, Full Range of Motion Extremities: Normal Inspection, Normal Range of Motion, Non-Tender, No Pedal Edema, Normal Capillary Refill Peripheral Pulses: 1+: Radial (L), Radial (R) Skin: Warm, Dry, Intact Neurological: No New Focal Deficit Psy/Mental Status: Alert, Normal Affect, Normal Mood Sepsis Event Note - Evaluation Sepsis Screening Result: No Definite Risk - Focused Exam Vital Signs: Vital Signs Temp Pulse Pulse Resp BP BP Pulse Ox 03/21/20 14:31 99.4 F 84 18 138/49 L 95 03/21/20 11:00 98.0 F 65 18 124/81 95 03/21/20 08:35 74 162/72 H 03/21/20 08:27 162/72 H 03/21/20 07:00 96.8 F L 74 16 162/72 H 97 - Problem List Review Problem List Initiated/Reviewed/Updated: Yes - My Orders Last 24 Hours: My Active Orders 03/20/20 18:00 Levofloxacin/Dextrose 5%-Water [Levaquin in D5W 500 MG/100 ML] 500 mg Premix Bag 1 bag IV Q24H 03/21/20 01:48 Melatonin 9 mg PO BEDTIME PRN 03/21/20 01:49 Temazepam [Restoril] 15 - 30 mg PO BEDTIME PRN 03/22/20 04:00 INR,PT,PROTHROMBIN TIME [COAG] Routine - Plan Plan:: Assessment/Plan: #1. Pneumonia: The CXR did confirm pneumonia. Will continue with Rochephin and Levaquin. He is doing much better today. No fever. WBC 11.5. Cultures are pending as no growth day two. CXR done with infiltrate not cleared. The CT of the lung needs to be repeated in 2-3 weeks to make sure it clears. #2. Atrial fibrillation: His INR is 4.09 So will hold Warfarin. #3. Hypertension: We'll continue with losartan. #4. Atherosclerotic heart disease with hyperlipidemia: We will continue with the statin medication. #5. Chronic renal failure we will monitor closely. Creat. 1.3. #6. Atherosclerosis lower extremities: He recently had angioplasty of both legs and the legs have healed as he did have open wounds in the leg. #7. Cancer of the prostate: Followed by the oncologist. #8. Seasonal allergies: Continue with medication Plan home in the morning.
[2020-03-21] MEDS: Montelukast 10 MG Tab PO SCH (17:40)
[2020-03-21] MEDS: Tiotropium Bromide 4 GM Inhalation Spray INH SCH (17:41)
[2020-03-21] MEDS: Levofloxacin/Dextrose 5%-Water 500 MG in Premix Bag 1 BAG IV SCH (18:00)
[2020-03-21] MEDS: atorvaSTATin 10 MG Tab PO SCH (21:23)
[2020-03-22 08:20] VITALS: BP 160/90; PULSE 62
[2020-03-22] MEDS: [UNRECOGNIZED DRUG - MIXTURE] PO SCH (08:28)
[2020-03-22] MEDS: Aspirin 81 MG Tab.EC PO SCH (08:32)
[2020-03-22] MEDS: Fish Oil/Omega-3 Fatty Acids 1 Gm Cap PO SCH (08:33)
[2020-03-22] MEDS: Cholecalciferol (Vitamin D3) 25 MCG Tab PO SCH (08:34)
[2020-03-22] MEDS: Lactobacillus Rhamnosus GG (Probiotic) Cap PO SCH (08:36)
[2020-03-22] MEDS: Multivitamins with Iron/Calcium/Folic Acid/Minerals Tab PO SCH (08:36)
[2020-03-22] MEDS: Metoprolol Succinate 50 MG Tab.ER PO SCH (08:37)
[2020-03-22] MEDS: Ascorbic Acid 500 MG Tab PO SCH (08:38)
[2020-03-22] MEDS: Furosemide 20 MG Tab PO SCH (08:39)
[2020-03-22] MEDS: Losartan 50 MG Tab PO SCH (08:40)
[2020-03-22] MEDS: GLUCOSAMINE PO SCH (08:41)
[2020-03-22] MEDS: CHONDROITIN PO SCH (08:41)
[2020-03-22] MEDS ORDERED: Warfarin 2.5 MG Tab PO ONE (09:00)
--- NOTE | 2020-03-22 21:05 | PCM.PN ---
- General Info Date of Service: 03/22/20 Subjective Update: Behzad says he is feeling good and wants to go home. he's able to walk in the halls and feels safe. Functional Status: Reports: Pain Controlled - Review of Systems General: Reports: No Symptoms HEENT: Reports: No Symptoms Pulmonary: Reports: Cough Cardiovascular: Reports: No Symptoms Gastrointestinal: Reports: No Symptoms Genitourinary: Reports: No Symptoms Musculoskeletal: Reports: No Symptoms Skin: Reports: No Symptoms Neurological: Reports: No Symptoms Psychiatric: Reports: No Symptoms - Patient Data Vitals - Most Recent: Last Vital Signs Temp 97.8 F 03/22/20 08:18 Pulse 62 03/22/20 08:37 Resp 18 03/22/20 03:00 BP 160/90 H 03/22/20 08:40 Pulse Ox 94 L 03/22/20 03:00 Weight - Most Recent: 172 lb 15.983 oz I&O - Last 24 Hours: Intake & Output 03/22/20 03/22/20 03/22/20 06:59 14:59 22:59 Intake Total 50 240 Output Total 350 350 Balance -300 -110 Lab Results Last 24 Hours: Laboratory Results - last 24 hr 03/22/20 Range/Units 04:00 PT 21.2 H (9.5-12.0) sec INR 1.97 H (0.80-1.20) Hardik Results Last 24 Hours: Microbiology 03/17/20 09:03 Aerobic Blood Culture - Final Blood - Arm, Right NO GROWTH AFTER 5 DAYS Anaerobic Blood Culture - Final NO GROWTH AFTER 5 DAYS 03/17/20 08:55 Aerobic Blood Culture - Final Blood - Arm, Right NO GROWTH AFTER 5 DAYS Anaerobic Blood Culture - Final NO GROWTH AFTER 5 DAYS Med Orders - Current: Current Medications Discontinued Medications Acetaminophen (Tylenol) 650 mg PO Q4H PRN PRN Reason: fever/pain Last Admin: 03/19/20 19:29 Dose: 650 mg Documented by: Ascorbic Acid (Vitamin C) 1,000 mg PO BID [facility] Last Admin: 03/22/20 08:38 Dose: 1,000 mg Documented by: Aspirin (Halfprin) 81 mg PO DAILY [facility] Last Admin: 03/22/20 08:32 Dose: 81 mg Documented by: Atorvastatin Calcium (Lipitor) 10 mg PO BEDTIME [facility] Last Admin: 03/21/20 21:23 Dose: 10 mg Documented by: Cholecalciferol (Vitamin D3) 25 mcg PO DAILY [facility] Last Admin: 03/22/20 08:34 Dose: 25 mcg Documented by: Docusate Sodium (Colace) 100 mg PO BID PRN PRN Reason: Constipation Last Admin: 03/19/20 09:48 Dose: 100 mg Documented by: Fish Oil (Fish Oil) 1 gm PO BID [facility] Last Admin: 03/22/20 08:33 Dose: 1 gm Documented by: Furosemide (Lasix) 20 mg PO DAILY [facility] Last Admin: 03/22/20 08:39 Dose: 20 mg Documented by: Dextrose/Sodium Chloride (Dextrose 5%-Normal Saline) 1,000 mls @ 0 mls/hr IV ASDIRECTED [facility] Last Admin: 03/18/20 22:05 Dose: 25 mls/hr Documented by: Ceftriaxone Sodium 1 gm/ (Sodium Chloride) 1 mls @ 2 mls/hr IV Q24H [facility] Last Admin: 03/18/20 10:02 Dose: 2 mls/hr Documented by: Levofloxacin/Dextrose 500 mg/ (Premix) 100 mls @ 100 mls/hr IV Q24H [facility] Stop: 03/17/20 18:59 Last Admin: 03/17/20 17:55 Dose: 100 mls/hr Documented by: Levofloxacin/Dextrose 250 mg/ (Premix) 50 mls @ 50 mls/hr IV Q48H [facility] Last Admin: 03/19/20 17:56 Dose: 50 mls/hr Documented by: Ceftriaxone Sodium 1 gm/ (Sodium Chloride) 50 mls @ 100 mls/hr IV Q24H [facility] Last Admin: 03/21/20 10:37 Dose: 100 mls/hr Documented by: Levofloxacin/Dextrose 500 mg/ (Premix) 100 mls @ 100 mls/hr IV Q24H [facility] Last Admin: 03/21/20 18:00 Dose: 100 mls/hr Documented by: Ibuprofen (Motrin) 400 mg PO ONETIME ONE Stop: 03/17/20 17:29 Last Admin: 03/17/20 17:55 Dose: 400 mg Documented by: Ibuprofen (Motrin) 600 mg PO Q6H PRN PRN Reason: Fever Last Admin: 03/20/20 19:26 Dose: 600 mg Documented by: Lactobacillus Rhamnosus (Culturelle) 1 cap PO BID [facility] Last Admin: 03/22/20 08:36 Dose: 1 cap Documented by: Losartan Potassium (Cozaar) 50 mg PO DAILY [facility] Last Admin: 03/22/20 08:40 Dose: 50 mg Documented by: Magnesium Hydroxide (Milk Of Magnesia) 30 ml PO BID PRN PRN Reason: Constipation Last Admin: 03/19/20 09:48 Dose: 30 ml Documented by: Melatonin (Melatonin) 9 mg PO BEDTIME PRN PRN Reason: Sleep Last Admin: 03/21/20 21:27 Dose: 9 mg Documented by: Metoprolol Succinate (Toprol Xl) 50 mg PO BID [facility] Last Admin: 03/22/20 08:37 Dose: 50 mg Documented by: Montelukast Sodium (Singulair) 10 mg PO QPM [facility] Last Admin: 03/21/20 17:40 Dose: 10 mg Documented by: Multivitamins/Minerals (Thera M Plus) 1 tab PO DAILY [facility] Last Admin: 03/22/20 08:36 Dose: 1 tab Documented by: Nitroglycerin (Nitrostat) 0.4 mg SL ASDIRECTED PRN PRN Reason: CHEST PAIN [Calcium 600-D3 Plus (Rosas)Pom) 0 mg PO BID [facility] Last Admin: 03/22/20 08:28 Dose: 1 mg Documented by: Glucosamine & Chondroitin 1 Cap Pom 0 each PO DAILY [facility] Last Admin: 03/22/20 08:41 Dose: 1 each Documented by: Temazepam (Restoril) 15 - 30 mg PO BEDTIME PRN PRN Reason: Sleep Last Admin: 03/21/20 23:55 Dose: 15 mg Documented by: Tiotropium [place] (Spiriva Respimat) 0 gm INH QPM [facility] Last Admin: 03/21/20 17:41 Dose: 2 gm Documented by: Warfarin Sodium (Coumadin) 5 mg PO ONETIME ONE Stop: 03/17/20 13:10 Last Admin: 03/17/20 14:36 Dose: 5 mg Documented by: Warfarin Sodium (Coumadin) 2.5 mg PO ONETIME ONE Stop: 03/18/20 13:01 Warfarin Sodium (Coumadin) 2.5 mg PO ONETIME ONE Stop: 03/21/20 14:24 Last Admin: 03/21/20 14:50 Dose: 2.5 mg Documented by: Warfarin Sodium (Coumadin) 2.5 mg PO ONETIME ONE Stop: 03/22/20 09:01 Last Admin: 03/22/20 09:17 Dose: 2.5 mg Documented by: - Exam General: Alert, Oriented HEENT: Pupils Equal, Pupils Reactive, EOMI, Mucous Membr. Moist/[place] Neck: Supple Lungs: Rales (rales in the lower lung base on the right.), Rhonchi Cardiovascular: Irregular Rhythm GI/Abdominal Exam: Normal Bowel Sounds Back Exam: Normal Inspection, Full Range of Motion Extremities: Normal Inspection, Normal Range of Motion, Non-Tender, No Pedal Edema, Normal Capillary Refill Peripheral Pulses: 1+: Radial (L), Radial (R) Skin: Warm, Dry, Intact Neurological: No New Focal Deficit Psy/Mental Status: Alert Sepsis Event Note - Evaluation Sepsis Screening Result: No Definite Risk - Problem List Review Problem List Initiated/Reviewed/Updated: Yes - Plan Plan:: Assessment/Plan: #1. Pneumonia: The CXR did confirm pneumonia. Will continue with Rochephin 1 injection in the morning IM and continue with Levaquin by mouth. No fever. WBC 11.5. Cultures are pending as no growth. CXR done with infiltrate not cleared. The CT of the lung needs to be repeated in 2-3 weeks to make sure it clears. #2. Atrial fibrillation: His INR is 4.09 So will hold Warfarin. #3. Hypertension: We'll continue with losartan. his pressure was elevated recently 160/90 today we'll recheck this tomorrow in the office. #4. Atherosclerotic heart disease with hyperlipidemia: We will continue with the statin medication. #5. Chronic renal failure we will monitor closely. Creat. 1.3. #6. Atherosclerosis lower extremities: He recently had angioplasty of both legs and the legs have healed as he did have open wounds in the leg. #7. Cancer of the prostate: Followed by the oncologist. #8. Seasonal allergies: Continue with medication Plan home today
--- NOTE | 2020-03-22 21:06 | PCM.DCSUM1 ---
Discharge Summary - Hospital Course HPI Initial Comments: Jordy is a 89-year-old white male who came to the office having a fever of 100.2 and having extreme weakness. Since there was no room in the hospital he did not want to go any place else so I gave him a shot of Rocephin 1 g IM and he went home. The said they got no sleep that night and he is extremely weak and tired. There was evidence of pneumonia in the right lung to auscultation. Diagnosis: Stroke: No - Discharge Data Discharge Date: 03/22/20 Discharge Disposition: Home, Self-Care 01 Condition: Good - Referral to Home Health Primary Care Physician: Harry Hussein Sr, MD - Patient Summary/Data Consults: Consultations 03/17/20 09:58 Consult to Physical Therapy [PT Evaluation and Treatment] [CONS] Routine Please Evaluate and Treat. PT Reason for Consult: weakness This query below is only for informational purposes and is not editable. Admission Diagnosis/Problem: Pneumonia Hospital Course: Jaswinder was started on Rocephin initially and the temperature remained elevated. Then added Levaquin and he became afebrile. Chest x-ray did confirm x-ray in the lower right lung and a CAT scan was done the day before discharge and still was not entirely normal and this needs to be repeated in 2-3 weeks to make sure that it has cleared. He also had constipation while in the hospital which was treated. - Patient Instructions Diet: Heart Healthy Diet, Usual Diet as Tolerated Activity: As Tolerated - Discharge Plan *PRESCRIPTION DRUG MONITORING PROGRAM REVIEWED*: No *COPY OF PRESCRIPTION DRUG MONITORING REPORT IN PATIENT REN: No Prescriptions/Med Rec: levoFLOXacin [Levaquin] 500 mg PO DAILY #4 tab Home Medications: Home Meds Metoprolol Succinate 50 mg PO BID 01/17/14 [History] Montelukast [Singulair] 10 mg PO QPM 01/17/14 [History] Aspirin [Ecotrin EC] 81 mg PO DAILY 12/14/15 [History] Nitroglycerin 0.4 mg SL ASDIRECTED 12/14/15 [History] Tiotropium [Spiriva HandiHaler] 2 puff IH QPM 12/14/15 [History] Warfarin Sodium 5 mg PO DAILY 12/14/15 [History] Cholecalciferol (Vitamin D3) [Vitamin D3] 1,000 unit PO DAILY 02/12/20 [History] Furosemide 20 mg PO DAILY 02/12/20 [History] Losartan [Cozaar] 50 mg PO DAILY 02/12/20 [History] Ascorbic Acid [Vitamin C] 1,000 mg PO BID 03/17/20 [History] Ca/D3/Mag Ox/Zinc/Coil Builder/Wilber/Bor [Calcium 600-D3 Plus Caplet] 600 mg PO BID 03/17/20 [History] Glucosam/Chondr/Collagn/Hyalur [Glucosamine & Chondroitin Cap] 1 each PO DAILY 03/17/20 [History] Krill/Om-3/DHA/EPA/Phospho/Ast [Krill Oil 500 mg Softgel] 500 mg PO BID 03/17/20 [History] Multivitamin [Multivitamins] 1 each PO DAILY 03/17/20 [History] atorvaSTATin [Lipitor] 10 mg PO BEDTIME 03/17/20 [History] Acetaminophen [Tylenol] 650 mg PO Q4H PRN tablet 03/22/20 [Rx] Lactobacillus Rhamnosus GG [Culturelle] 1 cap PO BID cap 03/22/20 [Rx] levoFLOXacin [Levaquin] 500 mg PO DAILY #4 tab 03/22/20 [Rx] - Discharge Summary/Plan Comment DC Time >30 min.: Yes Discharge Summary/Plan Comment: Assessment/Plan: #1. Pneumonia: The CXR did confirm pneumonia. Will continue with Rochephin 1 injection in the morning IM and continue with Levaquin by mouth. No fever. WBC 11.5. Cultures are pending as no growth. CXR done with infiltrate not cleared. The CT of the lung needs to be repeated in 2-3 weeks to make sure it clears. #2. Atrial fibrillation: His INR is 4.09 So will hold Warfarin. #3. Hypertension: We'll continue with losartan. his pressure was elevated recently 160/90 today we'll recheck this tomorrow in the office. #4. Atherosclerotic heart disease with hyperlipidemia: We will continue with the statin medication. #5. Chronic renal failure we will monitor closely. Creat. 1.3. #6. Atherosclerosis lower extremities: He recently had angioplasty of both legs and the legs have healed as he did have open wounds in the leg. #7. Cancer of the prostate: Followed by the oncologist. #8. Seasonal allergies: Continue with medication Plan home today - General Info Date of Service: 03/22/20 Functional Status: Reports: Pain Controlled - Review of Systems General: Reports: No Symptoms HEENT: Reports: No Symptoms Pulmonary: Reports: Cough Cardiovascular: Reports: No Symptoms Gastrointestinal: Reports: No Symptoms Genitourinary: Reports: No Symptoms Musculoskeletal: Reports: No Symptoms Skin: Reports: No Symptoms Neurological: Reports: No Symptoms Psychiatric: Reports: No Symptoms - Patient Data Vitals - Most Recent: Last Vital Signs Temp 97.8 F 03/22/20 08:18 Pulse 62 03/22/20 08:37 Resp 18 03/22/20 03:00 BP 160/90 H 03/22/20 08:40 Pulse Ox 94 L 03/22/20 03:00 Weight - Most Recent: 172 lb 15.983 oz I&O - Last 24 hours: Intake & Output 03/22/20 03/22/20 03/22/20 06:59 14:59 22:59 Intake Total 50 240 Output Total 350 350 Balance -300 -110 Lab Results - Last 24 hrs: Laboratory Results - last 24 hr 03/22/20 Range/Units 04:00 PT 21.2 H (9.5-12.0) sec INR 1.97 H (0.80-1.20) LILLIE Results - Last 24 hrs: Microbiology 03/17/20 09:03 Aerobic Blood Culture - Final Blood - Arm, Right NO GROWTH AFTER 5 DAYS Anaerobic Blood Culture - Final NO GROWTH AFTER 5 DAYS 03/17/20 08:55 Aerobic Blood Culture - Final Blood - Arm, Right NO GROWTH AFTER 5 DAYS Anaerobic Blood Culture - Final NO GROWTH AFTER 5 DAYS Med Orders - Current: Current Medications Discontinued Medications Acetaminophen (Tylenol) 650 mg PO Q4H PRN PRN Reason: fever/pain Last Admin: 03/19/20 19:29 Dose: 650 mg Documented by: Ascorbic Acid (Vitamin C) 1,000 mg PO BID [facility] Last Admin: 03/22/20 08:38 Dose: 1,000 mg Documented by: Aspirin (Halfprin) 81 mg PO DAILY [facility] Last Admin: 03/22/20 08:32 Dose: 81 mg Documented by: Atorvastatin Calcium (Lipitor) 10 mg PO BEDTIME [facility] Last Admin: 03/21/20 21:23 Dose: 10 mg Documented by: Cholecalciferol (Vitamin D3) 25 mcg PO DAILY [facility] Last Admin: 03/22/20 08:34 Dose: 25 mcg Documented by: Docusate Sodium (Colace) 100 mg PO BID PRN PRN Reason: Constipation Last Admin: 03/19/20 09:48 Dose: 100 mg Documented by: Fish Oil (Fish Oil) 1 gm PO BID [facility] Last Admin: 03/22/20 08:33 Dose: 1 gm Documented by: Furosemide (Lasix) 20 mg PO DAILY [facility] Last Admin: 03/22/20 08:39 Dose: 20 mg Documented by: Dextrose/Sodium Chloride (Dextrose 5%-Normal Saline) 1,000 mls @ 0 mls/hr IV ASDIRECTED [facility] Last Admin: 03/18/20 22:05 Dose: 25 mls/hr Documented by: Ceftriaxone Sodium 1 gm/ (Sodium Chloride) 1 mls @ 2 mls/hr IV Q24H [facility] Last Admin: 03/18/20 10:02 Dose: 2 mls/hr Documented by: Levofloxacin/Dextrose 500 mg/ (Premix) 100 mls @ 100 mls/hr IV Q24H [facility] Stop: 03/17/20 18:59 Last Admin: 03/17/20 17:55 Dose: 100 mls/hr Documented by: Levofloxacin/Dextrose 250 mg/ (Premix) 50 mls @ 50 mls/hr IV Q48H [facility] Last Admin: 03/19/20 17:56 Dose: 50 mls/hr Documented by: Ceftriaxone Sodium 1 gm/ (Sodium Chloride) 50 mls @ 100 mls/hr IV Q24H [facility] Last Admin: 03/21/20 10:37 Dose: 100 mls/hr Documented by: Levofloxacin/Dextrose 500 mg/ (Premix) 100 mls @ 100 mls/hr IV Q24H [facility] Last Admin: 03/21/20 18:00 Dose: 100 mls/hr Documented by: Ibuprofen (Motrin) 400 mg PO ONETIME ONE Stop: 03/17/20 17:29 Last Admin: 03/17/20 17:55 Dose: 400 mg Documented by: Ibuprofen (Motrin) 600 mg PO Q6H PRN PRN Reason: Fever Last Admin: 03/20/20 19:26 Dose: 600 mg Documented by: Lactobacillus Rhamnosus (Culturelle) 1 cap PO BID [facility] Last Admin: 03/22/20 08:36 Dose: 1 cap Documented by: Losartan Potassium (Cozaar) 50 mg PO DAILY [facility] Last Admin: 03/22/20 08:40 Dose: 50 mg Documented by: Magnesium Hydroxide (Milk Of Magnesia) 30 ml PO BID PRN PRN Reason: Constipation Last Admin: 03/19/20 09:48 Dose: 30 ml Documented by: Melatonin (Melatonin) 9 mg PO BEDTIME PRN PRN Reason: Sleep Last Admin: 03/21/20 21:27 Dose: 9 mg Documented by: Metoprolol Succinate (Toprol Xl) 50 mg PO BID [facility] Last Admin: 03/22/20 08:37 Dose: 50 mg Documented by: Montelukast Sodium (Singulair) 10 mg PO QPM [facility] Last Admin: 03/21/20 17:40 Dose: 10 mg Documented by: Multivitamins/Minerals (Thera M Plus) 1 tab PO DAILY [facility] Last Admin: 03/22/20 08:36 Dose: 1 tab Documented by: Nitroglycerin (Nitrostat) 0.4 mg SL ASDIRECTED PRN PRN Reason: CHEST PAIN [Calcium 600-D3 Plus (Rosas)Pom) 0 mg PO BID [facility] Last Admin: 03/22/20 08:28 Dose: 1 mg Documented by: Glucosamine & Chondroitin 1 Cap Pom 0 each PO DAILY [facility] Last Admin: 03/22/20 08:41 Dose: 1 each Documented by: Temazepam (Restoril) 15 - 30 mg PO BEDTIME PRN PRN Reason: Sleep Last Admin: 03/21/20 23:55 Dose: 15 mg Documented by: Tiotropium [place] (Spiriva Respimat) 0 gm INH QPM [facility] Last Admin: 03/21/20 17:41 Dose: 2 gm Documented by: Warfarin Sodium (Coumadin) 5 mg PO ONETIME ONE Stop: 03/17/20 13:10 Last Admin: 03/17/20 14:36 Dose: 5 mg Documented by: Warfarin Sodium (Coumadin) 2.5 mg PO ONETIME ONE Stop: 03/18/20 13:01 Warfarin Sodium (Coumadin) 2.5 mg PO ONETIME ONE Stop: 03/21/20 14:24 Last Admin: 03/21/20 14:50 Dose: 2.5 mg Documented by: Warfarin Sodium (Coumadin) 2.5 mg PO ONETIME ONE Stop: 03/22/20 09:01 Last Admin: 03/22/20 09:17 Dose: 2.5 mg Documented by: - Exam General: Reports: Alert, Oriented HEENT: Reports: Pupils Equal, Pupils Reactive, EOMI, Mucous Membr. Moist/[place] Neck: Reports: Supple Lungs: Reports: Rales, Rhonchi Extremities: Normal Inspection, Normal Range of Motion, Non-Tender, No Pedal Edema, Normal Capillary Refill Skin: Reports: Warm, Dry, Intact Psy/Mental Status: Reports: Alert, Normal Affect, Normal Mood
== END 2020-03-22 11:05 | disposition home or self-care (01) | DRG 194 ==
LOC: JP.MS 07:32
PROVIDERS: ADMIT Internal Medicine; ATTEND Internal Medicine
DX: J18.9 Pneumonia, unspecified organism (principal); J44.0 Chronic obstructive pulmonary disease with (acute) lower respiratory infection; I48.91 Unspecified atrial fibrillation; N18.9 Chronic kidney disease, unspecified; C61 Malignant neoplasm of prostate; J30.2 Other seasonal allergic rhinitis; E78.5 Hyperlipidemia, unspecified; I25.10 Atherosclerotic heart disease of native coronary artery without angina pectoris; E78.00 Pure hypercholesterolemia, unspecified; J44.9 Chronic obstructive pulmonary disease, unspecified; M19.90 Unspecified osteoarthritis, unspecified site; Z96.641 Presence of right artificial hip joint; I70.203 Unspecified atherosclerosis of native arteries of extremities, bilateral legs; I12.9 Hypertensive chronic kidney disease with stage 1 through stage 4 chronic kidney disease, or unspecified chronic kidney disease; Z79.82 Long term (current) use of aspirin; Z79.01 Long term (current) use of anticoagulants; Z79.899 Other long term (current) drug therapy; I25.2 Old myocardial infarction; Z95.5 Presence of coronary angioplasty implant and graft; Z98.49 Cataract extraction status, unspecified eye; Z87.891 Personal history of nicotine dependence
CPT/HCPCS: 36415; 71046; 71046-26; 71250; 71250-26; 80048; 80053; 81001; 85025; 85610; 87040; 94640; 94667; 97110-GP; 97161-GP; 97530-GP; A9270-GY; J0696; J1956; J7050